=== PATIENT | female | born 1965 | race Caucasian/White ===

== ENCOUNTER 2021-01-12 14:01 | Emergency (ER) | payer OTHER, SELFPAY ==
--- NOTE | ~2021-01-12 | CT_ITS ---
EXAMINATION: CT ABDOMEN AND PELVIS WITHOUT CONTRAST CLINICAL INFORMATION: LLQ pain with hx of diverticulitis . COMPARISON: 05/18/2017. TECHNIQUE: Multidetector volumetric imaging was performed from the superior aspect of the liver through the pubic symphysis without contrast per renal stone protocol. Sagittal and coronal reformatted images were obtained on the technologist workstation. This CT examination was performed using dose optimization techniques as appropriate, variously including the following: *Automated exposure control *Adjustment of mA and/or kV according to patient size (this includes techniques or standardized protocols for targeted exams where dose is matched to indication/reason for exam; i.e. extremities or head) *Use of iterative reconstruction technique DLP: 1016 mGy-cm. FINDINGS: LUNG BASES: The visualized lung bases are unremarkable. LIVER, GALLBLADDER, BILIARY TREE: Mild diffuse fatty infiltration of the liver but no focal hepatic lesion nor biliary ductal dilatation. The gallbladder is unremarkable with no evidence of radiopaque gallstones, gallbladder wall thickening, or obvious pericholecystic inflammatory changes. PANCREAS: Unremarkable. SPLEEN: Unremarkable. ADRENAL GLANDS: 3.8 cm fat-containing right adrenal myelolipoma. Left adrenal unremarkable. KIDNEYS AND URETERS: The kidneys are normal in size, shape, and attenuation. No hydronephrosis, hydroureter, or calculi seen. No perinephric stranding. BLADDER: Unremarkable. GASTROINTESTINAL TRACT: Scattered colonic diverticulosis more so in the sigmoid colon. There is subtle pericolonic inflammatory change along the proximal sigmoid colon suggesting mild diverticulitis. No obstructive changes or perforation identified. Visualized small bowel unremarkable. ABDOMINAL WALL: No significant hernia is appreciated. LYMPHOVASCULAR STRUCTURES: No lymphadenopathy. The aorta is unremarkable.. PELVIC VISCERA: Unremarkable. OSSEUS STRUCTURES: Multilevel degenerative changes in the spine CT/CT abdomen pelvis wo con IMPRESSION: Scattered diverticulosis more so in the sigmoid colon. There is mild focal pericolonic inflammatory change along the anterior proximal sigmoid colon suggesting focal diverticulitis. No obstructive changes seen. Small right adrenal angiomyolipoma and diffuse fatty infiltration of the liver again noted.
[2021-01-12 16:51] VITALS: BP 122/72; PULSE 100; RESP 20; TEMP 36.8; O2SAT 95; BMI 44.8
[2021-01-12 17:05] LABS: MANUAL DIFF FLAG NO
[2021-01-12 17:12] LABS: Basophils Percent Auto 0.3 % (0-2); Eosinophils Absolute Auto 0.6 X10*3/uL (0.0-0.4); Eosinophils Percent Auto 5.9 % (0-4); Hemoglobin 14.8 g/dl (12.0-16.0); Imm Gran Abs Auto 0.04 X10*3/uL (0.00-0.03); Imm Gran Pct Auto 0.4 % (0.0-0.4); Lymphocytes Percent Auto 10.4 % (20-40); Mean Corpuscular HGB Conc 32.9 g/dl (31.0-35.0); Mean Corpuscular Hemoglobin 30.5 pg (27.0-33.0); Mean Corpuscular Volume 92.6 fL (80-98); Monocytes Percent Auto 10.1 % (2-11); Neutrophils Absolute Auto 7.1 X10*3/uL (2.0-8.3); Neutrophils Percent Auto 72.9 % (45-73); Platelet Count 338 X10*3/uL (160-400); Red Blood Count 4.86 X10*6/uL (4.20-5.50); Red Cell Distribution Width 13.5 % (11.0-16.0); White Blood Count 9.7 X10*3/uL (4.8-10.8)
[2021-01-12 17:43] LABS: Anion Gap 14 (12-20); Blood Urea Nitrogen 9 mg/dL (9-16); Calcium 8.9 mg/dL (8.4-10.2); Carbon Dioxide 29 mmol/L (22-29); Chloride 101 mmol/L (96-108); Creatinine Clr Calc Pharmacy 70.2; Estimated Glomerular Filt Rate > 60; Glucose Random 95 mg/dL (60-115); Potassium 3.8 mmol/L (3.3-5.1); Sodium 140 mmol/L (135-145)
--- NOTE | 2021-01-12 20:54 | ED_ITS ---
HPI - Abdominal Pain General Chief Complaint: Abdominal Pain Stated Complaint: ABD PAIN Time Seen by Provider: 01/12/21 14:22 Source: patient Mode of arrival: ambulatory Limitations: no limitations History of Present Illness HPI narrative: Patient's history of diverticulitis been having pain in the left lower quadrant for last 6 days seen her PCP who prescribed her Cipro and Flagyl which she been taking for last 5 days patient noticed rash in lower extremities and upper extremity for last 24 hours also noticed the pain is still going on and not getting better with nausea no fever no chills no vomiting no abdominal distension no increase in pain on ambulation no blood in the stool MD elicited complaint: abdominal pain Pertinent past history: diverticulitis Onset (ago): day(s) (6) Pain Consistency: intermittent Location: RLQ and LLQ Severity: moderate Quality: cramping Exacerbating factors: eating and bowel movement Relieving factors: nothing Associated symptoms: nausea Related Data Previous Rx's Medication Instructions Recorded cefuroxime axetil 500 mg PO BID 10 Days #20 tab 01/12/21 dicyclomine 20 mg PO QID PRN #20 tab 01/12/21 ondansetron 4 mg PO Q6-8H PRN #10 tab 01/12/21 Allergies Allergy/AdvReac Type Severity Reaction Status Date / Time bee pollen [BEE STINGS] Allergy Severe ANAPHYLAXIS Unverified 08/14/20 15:20 Sulfa (Sulfonamide Allergy Severe ANAPHYLAXIS Unverified 08/14/20 15:20 Antibiotics) [SULFA (SULFONAMIDE ANTIBIOTICS)] Penicillins [PENICILLINS] Allergy Intermediate RASH Unverified 08/14/20 15:20 dill Allergy Unknown Uncoded 12/21/18 00:00 Milk Allergy Unknown Uncoded 12/21/18 00:00 PENICILLIN Allergy Unknown Uncoded 12/21/18 00:00 SULFA Allergy Unknown Uncoded 12/21/18 00:00 Review of Systems Review of Systems Constitutional : No Weight loss, No Fever, No Chills ENT/Mouth : No sore throat, No Rhinorrhea Eyes: No Eye Pain, No Swelling Cardiovascular : No Chest Pain, no palpitations Respiratory : No Cough, No Sputum, no shortness of breath Gastrointestinal : + Nausea, No Vomiting, No Diarrhea, + abdominal Pain, no black stools Genitourinary : No Dysuria, No Urinary Frequency Musculoskeletal : No joint pain, No Myalgias, No Joint Swelling Skin : No Skin Lesions, No rash Neuro : No Weakness, No Numbness, No Dizziness, No Headache Psych : No Anxiety/Panic, No Depression Heme/Lymph: No Bruising, No Lymphadenopathy Endocrine : No Polyuria, No Polydipsia All other systems reviewed and are negative Physical Exam Vital Signs: Vital Signs: Last Vital Signs Temp 98.2 F 01/12/21 16:51 Pulse 82 01/12/21 22:22 Resp 18 01/12/21 22:22 BP 140/71 H 01/12/21 22:22 Pulse Ox 98 01/12/21 22:22 Body Mass Index 44.8 Appearance: Alert. Oriented X3. No acute distress. Eyes: Pupils equal, round and reactive to light. ENT: Pharynx normal. Neck: Normal inspection. Neck supple. CVS: Normal heart rate and rhythm. Pulses normal. Respiratory: No respiratory distress. Breath sounds normal. Abdomen: Soft deep tenderness left lower quadrant no rebound tenderness or guarding. Bowel sounds are present, no mass palpable, no CVA tenderness Skin: Skin warm and dry. Normal skin color. Normal skin turgor. Extremities: No lower extremity edema. Neuro: Oriented X 3. No motor deficit. No sensory deficit. MDM - Abdominal Pain MDM Narrative Medical decision making narrative: Patient with left lower quadrant pain with history of diverticulitis on antibiotics came were increased pain and a rash secondary to Cipro likely. CT scan was done which showed focal diverticulitis no fluid collection WBC counts are normal at this time patient has localized diverticulitis IVC 410 was given in the ER will discharge patient home on Ceftin and advised to continue Flagyl Differential Diagnosis Differential diagnosis: Likely abdominal pain and diverticulitis Medical Records Attestation: I reviewed the patient's medical records. Lab Data Attestation: I reviewed the patient's lab results. Result diagrams: 01/12/21 17:00 01/12/21 17:00 Labs: Lab Results 01/12/21 01/12/21 01/12/21 Range/Units 17:00 17:00 17:00 WBC 9.7 (4.8-10.8) X10*3/uL RBC 4.86 (4.20-5.50) X10*6/uL Hgb 14.8 (12.0-16.0) g/dl Hct 45.0 (37-47) % MCV 92.6 (80-98) fL MCH 30.5 (27.0-33.0) pg MCHC 32.9 (31.0-35.0) g/dl RDW 13.5 (11.0-16.0) % Plt Count 338 (160-400) X10*3/uL MPV 9.0 L (9.4-12.3) fL Immature Gran % (Auto) 0.4 (0.0-0.4) % Neut % (Auto) 72.9 (45-73) % Lymph % (Auto) 10.4 L (20-40) % [place] % (Auto) 10.1 (2-11) % Eos % (Auto) 5.9 H (0-4) % Baso % (Auto) 0.3 (0-2) % Lymph # (Auto) 1.0 L (1.2-4.9) X10*3/uL [place] # (Auto) 1.0 (0.1-1.2) X10*3/uL Eos # (Auto) 0.6 H (0.0-0.4) X10*3/uL Baso # (Auto) 0.0 (0.0-0.2) X10*3/uL Abs Immat Gran (auto) 0.04 H (0.00-0.03) X10*3/uL Absolute Neuts (auto) 7.1 (2.0-8.3) X10*3/uL Absolute Nucleated RBC 0.000 (0.0-0.012) X10*3/uL Nucleated RBC % (auto) 0.0 (0.0-0.2) /100WBC Hold Blue Top SEE NOTE Sodium 140 (135-145) mmol/L Potassium 3.8 (3.3-5.1) mmol/L Chloride 101 (96-108) mmol/L Carbon Dioxide 29 (22-29) mmol/L Anion Gap 14 (12-20) BUN 9 (9-16) mg/dL Creatinine 0.82 (0.5-1.4) mg/dL Estim Creat Clear Calc 70.2 Estimated GFR > 60 Random Glucose 95 (60-115) mg/dL Calcium 8.9 (8.4-10.2) mg/dL Discharge Plan Discharge Clinical Impression: Diverticulitis Patient Disposition: Home, Self-Care Instructions: Diverticulitis (ED) Additional Instructions: Avoid constipation have clear liquids, advance diet as tolerated And take antibiotics and pain medicine as prescribed Report to the ER/PCP if increased pain/fever/vomiting Prescriptions: New cefuroxime axetil 500 mg tablet 500 mg PO BID 10 Days Qty: 20 RF: 0 ondansetron 4 mg tablet,disintegrating 4 mg PO Q6-8H PRN (Reason: nausea and vomiting) Qty: 10 RF: 0 dicyclomine 20 mg tablet 20 mg PO QID PRN (Reason: abdominal pain) Qty: 20 RF: 0 Stand Alone Forms: Work/School Release Interventions: ED Discharge Assessment Last Done: 01/12/21 22:43 [facility] Past Medical History Medical History (Updated 01/12/21 @ 22:32 by Shaw Dudley MD) Asthma Diverticulitis Social History Social History Alcohol intake: never Smoking Status: Never smoker Use of substances other than those prescribed or required for medical reasons: No Advance Directives: No
--- NOTE | 2021-01-12 21:16 | PC.NURSE ---
pt taken to ct
[2021-01-12 21:25] VITALS: BP 137/58; PULSE 88; RESP 20; O2SAT 97
[2021-01-12 22:22] VITALS: BP 140/71; PULSE 82; RESP 18; O2SAT 98
[2021-01-12] MEDS: ondansetron HCL 4 MG/2 ML VIAL IVPUSH (22:27)
[2021-01-12] MEDS: Acetaminophen 325 MG TABLET 650 MG PO (22:59)
[2021-01-12] MEDS: diphenhydrAMINE HCL 25 MG TABLET 50 MG PO (22:59)
--- NOTE | 2021-01-12 23:01 | PC.NURSE ---
upon giving pt her discharge papers pt started to have the chills temp taken 100.[address] sousa made aware and pt treated with tylenol and benadry.
--- NOTE | 2021-01-12 23:34 | PC.NURSE ---
pt seen by provider for chills , pt recieved benadryl and tylenol with good effect.
== END 2021-01-12 23:34 | disposition home or self-care (01) ==
PROVIDERS: Emergency Provider Internal Medicine; PCP Internal Medicine
DX: K57.92 Diverticulitis of intestine, part unspecified, without perforation or abscess without bleeding (principal); J45.909 Unspecified asthma, uncomplicated; L27.0 Generalized skin eruption due to drugs and medicaments taken internally
CPT/HCPCS: 36415; 74176; 80048; 85025; 96365; 96375; 99284; J2405; Q0163

== ENCOUNTER → 2021-01-28 13:59 | Outpatient (BNVA) | payer OTHER, SELFPAY | PROVIDERS: PCP Internal Medicine; Visit Provider Nurse Practitioner ==

== ENCOUNTER → 2021-02-25 13:14 | Outpatient (BNVA) | payer OTHER, SELFPAY | PROVIDERS: PCP Internal Medicine; Visit Provider Nurse Practitioner ==

== ENCOUNTER → 2021-08-28 15:09 | Outpatient (BNVA) | payer OTHER, SELFPAY | PROVIDERS: PCP Internal Medicine; Visit Provider Nurse Practitioner ==

== ENCOUNTER 2022-03-20 09:52 | Outpatient (REF) | payer OTHER, SELFPAY ==
[2022-03-20 09:57] LABS: MANUAL DIFF FLAG NO
[2022-03-20 10:36] LABS: Basophils Absolute Auto 0.1 X10*3/uL (0.0-0.2); Basophils Percent Auto 0.8 % (0-2); Eosinophils Absolute Auto 0.2 X10*3/uL (0.0-0.4); Eosinophils Percent Auto 1.7 % (0-4); Hematocrit 40.7 % (37.0-47.0); Hemoglobin 13.7 g/dl (12.0-16.0); Imm Gran Abs Auto 0.03 X10*3/uL (0.00-0.03); Imm Gran Pct Auto 0.3 % (0.0-0.4); Lymphocytes Absolute Auto 2.7 X10*3/uL (1.2-4.9); Lymphocytes Percent Auto 31.4 % (20-40); Mean Corpuscular HGB Conc 33.7 g/dl (31.0-35.0); Mean Corpuscular Hemoglobin 31.1 pg (27.0-33.0); Mean Corpuscular Volume 92.5 fL (80.0-98.0); Mean Platelet Volume 9.7 fL (9.4-12.3); Monocytes Absolute Auto 0.8 X10*3/uL (0.1-1.2); Monocytes Percent Auto 9.7 % (2-11); Neutrophils Absolute Auto 4.8 x10*3/uL (2.0-8.3); Neutrophils Percent Auto 56.1 % (45-73); Platelet Count 334 X10*3/uL (160-400); Red Cell Distribution Width 12.7 % (11.0-16.0); White Blood Count 8.6 X10*3/uL (4.8-10.8)
[2022-03-20 11:00] LABS: Alanine Aminotransferase 28 U/L (0-31); Albumin Level 4.2 g/dL (3.5-5.0); Alkaline Phosphatase 135 U/L (39-117); Anion Gap 12 (12-20); Aspartate Amino Transferase 22 U/L (5-31); Bilirubin Total 0.4 mg/dL (0.0-1.0); Blood Urea Nitrogen 16 mg/dL (9-16); Calcium 9.5 mg/dL (8.4-10.2); Carbon Dioxide 25 mmol/L (22-29); Chloride 106 mmol/L (96-108); Cholesterol 240 mg/dL; Estimated Glomerular Filt Rate > 60; Glucose Fasting 89 mg/dL (60-99); HDL Cholesterol 55 mg/dL; LDL Cholesterol Calculated 159 mg/dl; Potassium 3.8 mmol/L (3.3-5.1); Sodium 139 mmol/L (135-145); Total Protein 6.8 g/dL (6.5-8.0); Triglycerides 131 mg/dL
== END 2022-03-20 09:53 | disposition home or self-care (01) ==
LOC: HO.LAB 09:52
PROVIDERS: PCP Nurse Practitioner Family; Visit Provider Nurse Practitioner Family
DX: I10 Essential (primary) hypertension (principal); E78.00 Pure hypercholesterolemia, unspecified
CPT/HCPCS: 36415; 80053; 80061; 85025

== ENCOUNTER → 2022-06-14 14:14 | Outpatient (REF) | payer OTHER, SELFPAY | LOC: HO.SL 14:14 | PROVIDERS: PCP Nurse Practitioner Family; Visit Provider Nurse Practitioner Family | DX: G47.33 Obstructive sleep apnea (adult) (pediatric) (principal) | CPT/HCPCS: 95806 ==

== ENCOUNTER → 2022-10-15 14:04 | Outpatient (BNVA) | payer OTHER, SELFPAY | PROVIDERS: PCP Physician Assistant; Visit Provider Nurse Practitioner | DX: K59.04 Chronic idiopathic constipation (principal); K57.92 Diverticulitis of intestine, part unspecified, without perforation or abscess without bleeding | CPT/HCPCS: 99212 ==

== ENCOUNTER 2022-11-17 12:50 | Outpatient (REF) | payer OTHER, SELFPAY | END 2022-11-17 12:51 | disposition home or self-care (01) | LOC: HO.MAMMO 12:50 | PROVIDERS: PCP Physician Assistant; Visit Provider Physician Assistant | DX: Z12.31 Encounter for screening mammogram for malignant neoplasm of breast (principal) | CPT/HCPCS: 77063; 77067 ==

== ENCOUNTER → 2023-03-04 11:21 | Outpatient (BNVA) | payer OTHER, SELFPAY | PROVIDERS: PCP Physician Assistant; Visit Provider Dietitian, Registered | DX: E66.01 Morbid (severe) obesity due to excess calories (principal); Z68.44 Body mass index [BMI] 60.0-69.9, adult | CPT/HCPCS: 97802 ==

== ENCOUNTER → 2023-04-19 10:22 | Outpatient (BNVA) | payer OTHER, SELFPAY | PROVIDERS: PCP Physician Assistant; Visit Provider Dietitian, Registered | DX: E66.01 Morbid (severe) obesity due to excess calories (principal); Z68.44 Body mass index [BMI] 60.0-69.9, adult; Z71.3 Dietary counseling and surveillance | CPT/HCPCS: 97803 ==

== ENCOUNTER → 2023-05-03 10:35 | Outpatient (BNVA) | payer OTHER, SELFPAY | PROVIDERS: PCP Physician Assistant; Visit Provider Dietitian, Registered | DX: E66.01 Morbid (severe) obesity due to excess calories (principal) | CPT/HCPCS: 97803 ==

== ENCOUNTER 2023-10-06 15:42 | Outpatient (AMB) | payer OTHER, SELFPAY ==
[2023-10-06 15:43] VITALS: BP 142/82; PULSE 75; RESP 17; O2SAT 98; BMI 64.2
--- NOTE | 2023-10-06 15:43 | MHC.PC.OV ---
Vital Signs 10/06/23 15:43 Height 4 ft 5 in Weight 256 lb 8 oz BMI 64.2 BP 142/82 H Blood Pressure Location Lt brachial Position Sitting Respiration 17 Pulse 75 Pulse Source Pulse Oximeter Pulse Oximetry (%) 98 Oxygen Delivery Method Room Air Intake Visit Reasons: 6M Follow up Intake Note: Pt is here for 6 months F/U. 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 Accompanied by: Self / Same As Patient Allergies bee pollen [BEE STINGS] Allergy (Severe, Verified 10/06/23 16:15) ANAPHYLAXIS Sulfa (Sulfonamide Antibiotics) [SULFA (SULFONAMIDE ANTIBIOTICS)] Allergy (Severe, Verified 10/06/23 16:15) ANAPHYLAXIS Penicillins [PENICILLINS] Allergy (Intermediate, Verified 10/06/23 16:15) RASH dill Allergy (Intermediate, Uncoded 10/06/23 16:05) asthma Milk Allergy (Intermediate, Uncoded 10/06/23 16:05) stomach pains Medication List - Last Reconciled 10/06/23 by Vlad Torres PA-C albuterol sulfate 90 mcg/actuation 2 inhalations inhalation Q6-8H PRN CPAP (CPAP Machine/Device) CPAP machine and supplies fluoxetine TAKE 1 CAPSULE BY MOUTH DAILY hydrochlorothiazide 25 mg PO DAILY ibuprofen 800 mg PO TID PRN psyllium husk (Metamucil) 0.4 grams PO BID Tobacco use date assessed: 10/06/23 Dental Screening Dental Screen Date: 10/06/23 Did you have a dental visit in the last 12 months?: Yes Did you have a dental problem in the last 6 months where you did not have access to dental care?: No Was dental information given to patient?: Patient has dentist HPI 6M Follow up HPI Details Patient is a 57-year-old female here today for follow-up visit. Patient has a past medical history significant for major depressive disorder, asthma, obesity, ISABEL, diverticulitis. Patient is followed by gastroenterology and continues on p.r.n. use of laxatives and fiber supplementation for chronic constipation. Has a h/o diverticulitis. Has made some dietary changes which has helped her GI symptoms. .. Asthma: Has been well controlled, She report her allergies are primarily allergy related .. MDD: Does report her mental health has been stable with current mental health medications. She does not speak with a mental health therapist or psychiatrist at this time. .. Obesity: She does understand her BMI is well over 40 and she is not interested in bariatric surgery at this time. She is interested in speaking with a weight land management forester. She does report having some worsening bilateral knee pain and left lateral hip pain and occasional numbness over her lateral thigh. She attributes these symptoms to her weight. She is interested in doing physical therapy for her lumbar spine. 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 Sandip Morrissey, Bindu Da Silva, Stuart Jones and colleagues, with an educational driss from [employer]. Review of Systems Const Denies headache(s) Eyes Denies loss of vision ENT Denies vertigo, Denies dizziness, Denies headache(s) and Denies sore throat Card Denies chest pain, Denies leg edema and Denies lightheadedness Resp Denies cough, Denies hemoptysis and Denies wheezing GI Denies abdominal pain, Denies melena, Denies constipation, Denies diarrhea and Denies vomiting Denies urinary frequency, Denies dysuria and Denies urinary urgency Musc Denies arthralgias, Denies joint swelling, Denies numbness and Denies tingling Neuro Denies Abnormal speech present, Denies behavioral changes, Denies vertigo, Denies dizziness, Denies headache(s), Denies loss of vision, Denies memory loss, Denies numbness and Denies tingling Psych Denies anxiety, Denies behavioral changes, Denies depression, Denies memory loss and Denies panic attacks Micah/Lymph Denies easy bleeding and Denies easy bruising Aller/Immun Denies wheezing Physical exam (Primary Care) Vital Signs: Last Vital Signs Pulse 75 10/06/23 15:43 Resp 17 10/06/23 15:43 BP 142/82 H 10/06/23 15:43 Pulse Ox 98 10/06/23 15:43 Oxygen Delivery Method Room Air 10/06/23 15:43 BMI result Body Mass Index 64.2 BMI Assessment/Plan discussion: High Tobacco/Smoking Status: Tobacco use Status Tobacco use date assessed 10/06/23 10/06/23 16:00 Patient Tobacco Use Status Former Tobacco user 10/06/23 15:46 e-Cigarette/Vaping Use Never Used 10/06/23 15:46 Thrive Assessment: Date of Thrive Assessment Date Thrive assessed 03/29/22 10/06/23 15:46 Const Other: Obese General: healthy appearing, no acute distress, alert and awake Nutritional Appearance: well nourished Orientation/consciousness: oriented to person, oriented to place and oriented to time HENMT Ears: TM's normal bilaterally and normal EAC's General nose exam: Normal nasal mucous membranes and turbinates present Eyes Conjunctivae: conjunctivae normal Sclerae: sclerae normal Pupils: Equal, round and reactive pupils present Neck Neck: Yes no lymphadenopathy and Yes no JVD Thyroid: Thyroid normal Carotids: no bruits Resp Effort & Inspection: normal respiratory effort and not tachypneic Auscultation: no crackles, no rales, no rhonchi and no wheezes Cardio Rate: regular rate Rhythm: regular rhythm Heart sounds: no murmurs and normal S1 and S2 GI Palpation (GI): Soft to palpation, nontender, no hepatomegaly and no splenomegaly Auscultation: normal bowel sounds Skin General skin exam: no rashes or lesions noted and dry skin Neuro General: oriented to person, oriented to place and oriented to time Cranial nerves: Yes Equal, round and reactive pupils present Speech: No Abnormal speech present Gait exam (Neuro): Normal gait present Motor exam (neuro): no tremor noted Extrem Right upper extremity: full ROM Left upper extremity: full ROM Right lower extremity: full ROM; no edema Left lower extremity: full ROM; no edema Psych Mental Status: mental status grossly normal Speech and movement: Normal speech and movement present Affect: normal affect Attitude: cooperative Thought process: Normal thought process present Assessment and Plan Assessment & Plan (1) Morbid obesity: Code(s): E66.01 - Morbid (severe) obesity due to excess calories Plan: Patient does understand her BMI is over 60 will continue working on being more physically active and adapting to better eating habits to reduce her weight. Again she is interested in speaking with a weight land management forester but weight reduction (2) Lumbar radiculopathy: Code(s): M54.16 - Radiculopathy, lumbar region Plan: Patient seems to have signs and symptoms of lumbar radiculopathy. She is willing to do physical therapy to help reduce her lumbar radicular symptoms (3) MDD (major depressive disorder), recurrent episode, moderate: Code(s): F33.1 - Major depressive disorder, recurrent, moderate Plan: . (4) Asthma: Code(s): J45.909 - Unspecified asthma, uncomplicated Qualifiers: Asthma complication type: uncomplicated Asthma persistence: intermittent Asthma severity: mild Qualified Code(s): J45.20 - Mild intermittent asthma, uncomplicated Plan: Patient reports her asthma is fairly well controlled with only limited p.r.n. use of her albuterol inhaler. Denies any nighttime awakenings with asthma symptoms or recent asthma exacerbations. (5) HLD (hyperlipidemia): Code(s): E78.5 - Hyperlipidemia, unspecified Qualifiers: Hyperlipidemia type: mixed hyperlipidemia Qualified Code(s): E78.2 - Mixed hyperlipidemia Plan: Most recent lipid panel showing elevated total cholesterol. Continue to work on lifestyle modifications to reduce her cholesterol. (6) HTN (hypertension): Code(s): I10 - Essential (primary) hypertension Qualifiers: Hypertension type: primary hypertension Qualified Code(s): I10 - Essential (primary) hypertension Plan: Patient blood pressure slightly elevated today in office. She continues on hydrochlorothiazide without any side effect. She does not regularly monitor blood pressure and advised to do so at home. Fortunately she is asymptomatic without any chest discomfort, headaches or dizziness. Will consider additional blood pressure medication though will like to work on weight reduction at this time. Goal blood pressure to be below 140/90 Orders: Orders PT Evaluation and Treatment 10/06/23 M51.9 - Unspecified thoracic, thoracolumbar and lumbosacral intervertebral disc disorder, M54.16 - Radiculopathy, lumbar region XR lumbar spine 2-3V 10/06/23 G89.29 - Other chronic pain, M54.50 - Low back pain, unspecified Comprehensive [place]. Panel Fast 10/06/23 E78.2 - Mixed hyperlipidemia Lipid Panel 10/06/23 E78.2 - Mixed hyperlipidemia Microalbumin, Random (w Creat) 10/06/23 I10 - Essential (primary) hypertension Referrals Medical Weight Management Referral E66.01 - Morbid (severe) obesity due to excess calories Medications: Changed From fluoxetine TAKE 1 CAPSULE BY MOUTH DAILY 30 caps 0RF F33.1 - Major depressive disorder, recurrent, moderate To fluoxetine 20 mg PO DAILY 90 days 90 caps 1RF F33.1 - Major depressive disorder, recurrent, moderate From hydrochlorothiazide 25 mg PO DAILY 30 tabs 0RF I10 - Essential (primary) hypertension To hydrochlorothiazide 25 mg PO DAILY 90 days 90 tabs 1RF I10 - Essential (primary) hypertension Coding Level of Care Code Est Pt Level 4 (54306) Diagnoses Morbid obesity E66.01 Lumbar radiculopathy M54.16 MDD (major depressive disorder), recurrent episode, moderate F33.1 Mild intermittent asthma without complication J45.20 Asthma complication type: uncomplicated Asthma persistence: intermittent Asthma severity: mild Mixed hyperlipidemia E78.2 Hyperlipidemia type: mixed hyperlipidemia Primary hypertension I10 Hypertension type: primary hypertension
== END 2023-10-06 16:41 | disposition home or self-care (01) ==
PROVIDERS: PCP Physician Assistant; Visit Provider Physician Assistant
DX: J45.20 Mild intermittent asthma, uncomplicated (principal); E66.01 Morbid (severe) obesity due to excess calories; F33.1 Major depressive disorder, recurrent, moderate; Z68.44 Body mass index [BMI] 60.0-69.9, adult; M54.16 Radiculopathy, lumbar region; E78.2 Mixed hyperlipidemia; I10 Essential (primary) hypertension
CPT/HCPCS: 99214

== ENCOUNTER 2023-12-16 14:55 | Outpatient (AMB) | payer OTHER, SELFPAY ==
--- NOTE | 2023-12-16 14:59 | MHC.OFFVIS ---
Intake Vital Signs 12/16/23 15:39 Height 4 ft 5 in Weight 264 lb 8.875 oz BMI 66.2 BP 116/53 L Blood Pressure Location Rt brachial Position Sitting Pulse 95 Intake Visit Reasons: 1 year fu Intake Note: Patient presents to in office visit today in one year follow up of constipation. CC: She states she continues on her Metamucil once or twice a day and is doing great. Denies having any new GI symptoms or concerns today. [employer] Required: No Accompanied by: Self / Same As Patient Allergies bee pollen [BEE STINGS] Allergy (Severe, Verified 10/06/23 16:15) ANAPHYLAXIS Sulfa (Sulfonamide Antibiotics) [SULFA (SULFONAMIDE ANTIBIOTICS)] Allergy (Severe, Verified 10/06/23 16:15) ANAPHYLAXIS Penicillins [PENICILLINS] Allergy (Intermediate, Verified 10/06/23 16:15) RASH dill Allergy (Intermediate, Uncoded 10/06/23 16:05) asthma Milk Allergy (Intermediate, Uncoded 10/06/23 16:05) stomach pains HPI 1 year fu HPI Details Assessment & Plan (1) Chronic idiopathic constipation: Code(s): K59.04 - Chronic idiopathic constipation Plan: She is doing well! She is taking the metamucil and being careful about the diet and no more problems. This is the 1st that she has been able to meet me in person since we started during COVID and the telephone visit era, but she is very grateful for high been able to bring her through her illness to recovery. I tell her that since she has done well she can either opt to follow-up with me or just follow with her primary care but she preferred to keep her options open and follow-up with us yearly. She has not needed to use the dicyclomine since she has fully recovered from her diverticulitis. ROV 1 year (2) Diverticulitis: Code(s): K57.92 - Diverticulitis of intestine, part unspecified, without perforation or abscess without bleeding TODAY'S VISIT She has managed her CIC with metamucil w/o problem in the past. Since she is very stable I offer her whether she wishes to continue to follow with me or simply follow with her primary care provider. She opts to follow-up at 1 year intervals because she would rather have access to a GI in case she has future problems. She asked me to prescribe the Metamucil and although it has frequently not covered by insurance it may be covered under her flex spending plan and if she needs me to write prescription in the future I will do this. Return office visit in 1 year [facility] Medical History Screening for hypothyroidism Breast cancer screening Obese COVID-19 Physical exam BMI 50.0-59.9, adult Encounter to establish care Asthma Diverticulitis Surgical History Hx of colonoscopy Family History Mother Breast cancer Substance use disorder Brother High cholesterol Father Diverticulitis Other Mental health disorder Social History Household Members: Significant Other Housing: Apartment Alcohol intake: never Patient Tobacco Use Status: Former Tobacco user e-Cigarette/Vaping Use: Never Used Second Hand Smoke Exposure: No service: No Current occupational status: employed 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 Current occupational exposures/hazards: No Cognitive needs: No Hearing needs: No Vision needs: Yes (glasses) Review of Systems Const Denies fatigue, Denies fever(s), Denies night sweats, Denies poor appetite and Denies weight loss Eyes Details: glasses Reports requires corrective lenses ENT Reports Normal hearing present, Denies dental pain, Denies dysphagia, Denies hearing loss, Denies mouth pain, Denies odynophagia, Denies throat swelling, Denies tongue swelling and Reports other (Dentition adequate) Card Reports no additional complaints Resp Reports no additional complaints GI Denies abdominal pain, Denies melena, Denies bloating, Denies hematochezia, Reports constipation, Denies GI cramping, Denies dysphagia, Denies excessive flatus, Denies early satiety, Denies heartburn, Denies diarrhea, Denies nausea, Denies odynophagia, Denies vomiting and Denies hematemesis Skin/Breast Denies pruritus, Denies lesions, Denies rash and Denies jaundice Neuro Reports Normal hearing present and Denies Abnormal speech present Endo Denies fatigue Aller/Immun Denies throat swelling and Denies tongue swelling Physical Exam Vital Signs: Last Vital Signs Pulse 95 12/16/23 15:39 BP 116/53 L 12/16/23 15:39 BMI result Body Mass Index 66.2 Const General: cooperative, no acute distress, well developed and well groomed Nutritional Appearance: well nourished and obese morbidly obese Orientation/consciousness: oriented to person, oriented to place and oriented to time Limitations: No language barrier HEENT Head: Yes normocephalic and Yes atraumatic Eyes General: appearance normal, both eyes and all related structures Pupils: Equal, round and reactive pupils present Neck Neck: Yes normal visual inspection and Yes no lymphadenopathy Thyroid: Thyroid normal Resp Effort & Inspection: normal respiratory effort and able to speak in complete sentences Auscultation: clear to auscultation bilaterally Cardio Rate: regular rate Rhythm: regular rhythm Heart sounds: Normal, physiologic split S2 sound present Peripheral pulses: radial pulses present and posterior tibial pulses present GI Inspection: No distended, Yes Abdominal panniculus present and Yes obesity Palpation (GI): Soft to palpation, nontender, no guarding, not rigid and No hepatosplenomegaly present Percussion: Yes normal to percussion Auscultation: normal bowel sounds Rectal Exam - Female: deferred Skin General skin exam: no rashes or lesions noted, turgor normal, skin not dry, no jaundice, No spider nevi and no striae Rashes: no rashes Nails: normal Neuro General: oriented to person, oriented to place and oriented to time Cranial nerves: Yes Equal, round and reactive pupils present and Yes Normal hearing present Speech: No Abnormal speech present Extrem General: Yes normal to inspection, No clubbing, No cyanosis and No edema Psych Appearance: grossly normal and well kempt Mental Status: mental status grossly normal Speech and movement: Normal speech and movement present Affect: normal affect Attitude: cooperative Thought process: Normal thought process present and not confabulating Thought content: Normal thought content present Insight: Good insight present (Psych) Judgement: Good judgement present (Psych) Assessment & Plan Assessment & Plan (1) Chronic idiopathic constipation: Code(s): K59.04 - Chronic idiopathic constipation (2) Diverticulitis: Code(s): K57.92 - Diverticulitis of intestine, part unspecified, without perforation or abscess without bleeding Plan She has managed her CIC with metamucil w/o problem in the past. Since she is very stable I offer her whether she wishes to continue to follow with me or simply follow with her primary care provider. She opts to follow-up at 1 year intervals because she would rather have access to a GI in case she has future problems. She asked me to prescribe the Metamucil and although it has frequently not covered by insurance it may be covered under her flex spending plan and if she needs me to write prescription in the future I will do this. Return office visit in 1 year Medications: New psyllium husk (Metamucil) 0.4 grams PO BID 60 caps 12RF Coding Level of Care Code Est Pt Level 3 (39853) Diagnoses Chronic idiopathic constipation K59.04 Diverticulitis K57.92
[2023-12-16 15:39] VITALS: BP 116/53; PULSE 95; BMI 66.2
== END 2023-12-16 16:00 | disposition home or self-care (01) ==
PROVIDERS: PCP Physician Assistant; Visit Provider Nurse Practitioner
DX: K59.04 Chronic idiopathic constipation (principal); K57.92 Diverticulitis of intestine, part unspecified, without perforation or abscess without bleeding
CPT/HCPCS: 99213

== ENCOUNTER → 2023-12-16 14:55 | Outpatient (BNVA) | payer OTHER, SELFPAY | PROVIDERS: PCP Physician Assistant; Visit Provider Nurse Practitioner | DX: K59.04 Chronic idiopathic constipation (principal); K57.92 Diverticulitis of intestine, part unspecified, without perforation or abscess without bleeding | CPT/HCPCS: 99212 ==

== ENCOUNTER 2023-12-26 13:39 | Outpatient (REF) | payer OTHER, SELFPAY ==
--- NOTE | ~2023-12-26 | MM_ITS ---
EXAMINATION: MM SCREENING DIGITAL BREAST TOMOSYNTHESIS, BILATERAL CLINICAL INFORMATION: Screening. Asymptomatic. COMPARISON: Mammography: This study is compared with prior exams dating back to 2021. TECHNIQUE: Digital breast tomosynthesis is performed in both the craniocaudal and mediolateral oblique views along with computer-aided detection (CAD). Synthesized 2D images are generated from the tomosynthesis. FINDINGS: The breasts are almost entirely fatty (ACR BI-RADS breast composition Category a). There are no significant masses, abnormal calcifications, or other abnormalities. MM/MM tomosynthesis screening BI IMPRESSION: No mammographic evidence of malignancy. ASSESSMENT: BI-RADS BI-RADS 1 - Negative RECOMMENDATION: Routine annual mammography screening. 1 year F/U This examination should not preclude the clinical evaluation of a suspicious palpable abnormality. This patient's information was entered into a reminder system with a target due date for their next mammogram.
== END 2023-12-26 13:40 | disposition home or self-care (01) ==
LOC: HO.MAMMO 13:39
PROVIDERS: PCP Physician Assistant; Visit Provider Physician Assistant
DX: Z12.31 Encounter for screening mammogram for malignant neoplasm of breast (principal)
CPT/HCPCS: 77063; 77067

== ENCOUNTER → 2023-12-26 13:45 | Outpatient (BNV) | payer OTHER, SELFPAY | PROVIDERS: PCP Physician Assistant; Visit Provider Radiology Diagnostic Radiology | DX: Z12.31 Encounter for screening mammogram for malignant neoplasm of breast (principal) | CPT/HCPCS: 77063; 77067 ==

== ENCOUNTER 2023-12-28 16:30 | Outpatient (REF) | payer OTHER, SELFPAY ==
--- NOTE | ~2023-12-28 | XR_ITS ---
EXAMINATION: XR LUMBOSACRAL SPINE CLINICAL INFORMATION: Low back pain COMPARISON: None available. TECHNIQUE: Three views of the lumbosacral spine. FINDINGS: The visualized lumbar vertebrae are intact with normal alignment. Bilateral 12th ribs are rudimentary. Lateral sharp bridging syndesmophytes are seen from L1 to L3. Intervertebral disc spaces are markedly reduced at L2-L3. XR/XR lumbar spine 2-3V IMPRESSION: 1. Advanced L2-L3 degenerative lumbar disc disease. 2. Prominent L1-L3 lateral syndesmophytes are present. 3. No fracture or dislocation of lumbar spine is seen.
--- NOTE | ~2023-12-28 | XR_ITS ---
EXAMINATION: XR HAND, RIGHT CLINICAL INFORMATION: Right hand swelling and pain COMPARISON: None available. TECHNIQUE: PA, lateral, and oblique views of the right hand. FINDINGS: BONES: Bony structures are intact. There is no focal bone destruction or periosteal reaction seen. JOINTS: Alignment of joints is normal. SOFT TISSUE: Soft tissue is normal. Metal rings are seen in right thumb, proximal right third and fourth fingers causing partial obscuration. No radiopaque foreign body or abnormal air collection is seen. XR/XR hand RT 2V IMPRESSION: 1. Normal x-rays of right hand. No fracture or dislocation or signs of osteomyelitis are found.
== END 2023-12-28 16:31 | disposition home or self-care (01) ==
LOC: HO.XRAY 16:30
PROVIDERS: PCP Physician Assistant; Visit Provider Physician Assistant
DX: M79.641 Pain in right hand (principal); M54.50 Low back pain, unspecified; G89.29 Other chronic pain
CPT/HCPCS: 72100; 73120

== ENCOUNTER 2024-02-03 14:13 | Outpatient (AMB) | payer OTHER, SELFPAY ==
--- NOTE | 2024-02-03 14:15 | MHC.OFFVIS ---
Intake Vital Signs 02/03/24 14:23 Height 4 ft 5 in Weight 265 lb BMI 66.3 BP 130/68 Blood Pressure Location Lt brachial Position Sitting Respiration 17 Pulse 102 H Pulse Source Pulse Oximeter Pulse Oximetry (%) 96 Oxygen Delivery Method Room Air Intake Visit Reasons: Radiculopathy, lumbar region Intake Note: Patient comes in for initial visit was referred by [facility] Primary Care. Reports pain 6/10. Allergies bee pollen [BEE STINGS] Allergy (Severe, Verified 10/06/23 16:15) ANAPHYLAXIS Sulfa (Sulfonamide Antibiotics) [SULFA (SULFONAMIDE ANTIBIOTICS)] Allergy (Severe, Verified 10/06/23 16:15) ANAPHYLAXIS Penicillins [PENICILLINS] Allergy (Intermediate, Verified 10/06/23 16:15) RASH dill Allergy (Intermediate, Uncoded 10/06/23 16:05) asthma Milk Allergy (Intermediate, Uncoded 10/06/23 16:05) stomach pains HPI Radiculopathy, lumbar region HPI Details Patient is a pleasant 58 years old morbidly obese female presents today for initial evaluation of lower back pain with left sided radiculopathy. Denies any recent trauma, injury or falls. Reports mechanical fall in the past at her previous job. 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 Patient reports significant low back pain with radiation into her left lower extremity anteriorly. She also has bilateral knee and right hand. She is aware that her weight is major factor for chronic back and knee pain and has been working on her weight but finds dieting unsuccessful. Patient has been referred to our Weight Management team but is hesitant towards surgical option. She is interested in Nutritional Therapy referral as well as medical management. Patient lives on 2nd floor without elevator building complex. Reports significant back and knee pain with climbing and descending stairs, weight bearing and any movement in general. Denies any fever, abdominal or groin pain, foot drop, weakness, bladder or bowel dysfunction or saddle anesthesia. Patient reports good mental, family and social good support, she loves her current job. She is trying to loose significant amount of weight to improve her health, reduce pain, improve her sleep, increase walking capacity and standing/walking tolerance and quality of life as well as be more productive and efficient at her work. Patient reports her depression is well controlled with medication. Location Lower back radiating to LLE anteriorly, right hand, bilateral knee pain Duration Chronic pain, on and off, worsening for past one year Characteristics of symptom or complaint Aching, sore, dull, shooting, flashing, tingling, stinging, heavy Aggravating or associated factors Walking, bending, standing Relieving factors Ibuprofen, CBD oil, Tylenol, ice/heat therapy, topical applications Treatment Chiropractic therapy, acupuncture, TENS unit [facility] Medical History Screening for hypothyroidism Breast cancer screening Obese COVID-19 Physical exam BMI 50.0-59.9, adult Encounter to establish care Asthma Diverticulitis Surgical History Hx of colonoscopy Family History Mother Breast cancer Substance use disorder Brother High cholesterol Father Diverticulitis Other Mental health disorder Social History Household Members: Significant Other Housing: Apartment Alcohol intake: never Patient Tobacco Use Status: Former Tobacco user e-Cigarette/Vaping Use: Never Used Second Hand Smoke Exposure: No service: No Current occupational status: employed 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 Current occupational exposures/hazards: No Cognitive needs: No Hearing needs: No Vision needs: Yes (glasses) Review of Systems Const All systems reviewed & are unremarkable except as noted in HPI and below ENT Reports Normal hearing present Neuro Reports Normal hearing present, Denies confusion and Denies Sensory deficit (Neuro) Psych Denies confusion Physical Exam Vital Signs: Last Vital Signs Pulse 102 H 02/03/24 14:23 Resp 17 02/03/24 14:23 BP 130/68 02/03/24 14:23 Pulse Ox 96 02/03/24 14:23 Oxygen Delivery Method Room Air 02/03/24 14:23 BMI result Body Mass Index 66.3 Const General: cooperative, no acute distress and alert; No confusion Nutritional Appearance: obese morbidly obese Orientation/consciousness: patient oriented x3 and No confusion Limitations: no limitations HEENT Head: Yes normal to inspection, Yes normocephalic and Yes atraumatic Ears: hearing grossly normal bilaterally Face and sinus: Yes normal facial exam and Yes face symmetric Eyes General: appearance normal, both eyes and all related structures Neck Neck: Yes normal visual inspection, Yes full ROM, Yes no lymphadenopathy, Yes supple, No anterior neck swelling, Yes no JVD and Yes prominent dorsocervical fat pad Resp Effort & Inspection: normal respiratory effort, able to speak in complete sentences, no audible wheezes and no cough Cardio Jugular venous distension: no JVD Peripheral pulses: radial pulses present, posterior tibial pulses present and dorsalis pedis present GI Inspection: Yes Abdominal panniculus present and Yes obesity Palpation (GI): Soft to palpation and nontender General: Yes no CVA tenderness Back/Spine/Pelvis Other: Limited lumbar ROM due to pain and body habitus. Lumbar flexion and extension with lateral rotations reproduce significant pain. Mild tenderness in the projection of bilateral sacroiliac joint areas. Back: no CVA tenderness Cervical Spine: cervical ROM normal, cervical muscular tenderness and No Cervical spine tenderness Thoracic/Lumbar Spine: thoracic and lumbar spine normal to inspection, No Thoracic/lumbar spine scar(s), Lasegue's sign positive on the left and diffuse, pain with thoraco-lumbar ROM, paraspinal muscle tenderness, thoraco-lumbar ROM limited, No thoracic spinal tenderness and lumbar spinal tenderness at L3, at L4 and at L5 Pelvis: no pain with anterior-posterior compression, no pain with lateral compression and buttock tenderness on the left Sacroiliac joints: bilaterally tender to palpation Skin General skin exam: no rashes or lesions noted Neuro General: patient oriented x3, moves all extremities, Normal light touch and pain sensation, CN's II-XI intact bilaterally and No confusion Cranial nerves: Yes Normal hearing present Cognition (Neuro): normal cognition Gait exam (Neuro): Antalgic gait present and No Assistive device used Motor exam (neuro): 5/5 motor strength present throughout, no tremor noted and Motor abnormalities not present Sensory Exam: No Sensory deficit (Neuro) Extrem General: Yes capillary refill normal, Yes no calf tenderness and Yes pedal edema Right lower extremity: knee (limited ROM due to pain) Details: tenderness Location: of the patella, of the medial joint line and of the lateral joint line and crepitus; no swelling and no unusual warmth Left lower extremity: knee (limited ROM due to pain) Details: tenderness Location: of the patella, of the medial joint line and of the lateral joint line and crepitus; no swelling and no unusual warmth Psych Appearance: grossly normal Speech and movement: Normal speech and movement present Affect: normal affect Attitude: cooperative Thought process: Normal thought process present Thought content: Normal thought content present Insight: Good insight present (Psych) Judgement: Good judgement present (Psych) Results Reviewed Results Reviewed: XR LUMBOSACRAL SPINE 12/28/23 CLINICAL INFORMATION: FINDINGS: The visualized lumbar vertebrae are intact with normal alignment. Bilateral 12th ribs are rudimentary. Lateral sharp bridging syndesmophytes are seen from L1 to L3. Intervertebral disc spaces are markedly reduced at L2-L3. IMPRESSION: 1. Advanced L2-L3 degenerative lumbar disc disease. 2. Prominent L1-L3 lateral syndesmophytes are present. 3. No fracture or dislocation of lumbar spine is seen. Assessment & Plan Assessment & Plan (1) Bilateral knee pain: Code(s): M25.561 - Pain in right knee; M25.562 - Pain in left knee (2) Lumbar radiculopathy: Code(s): M54.16 - Radiculopathy, lumbar region (3) Chronic low back pain: Code(s): M54.50 - Low back pain, unspecified; G89.29 - Other chronic pain Qualifiers: Sciatica laterality: sciatica of left side Sciatica presence: with sciatica (4) Lumbosacral spondylosis: Code(s): M47.817 - Spondylosis without myelopathy or radiculopathy, lumbosacral region (5) Muscle spasm: Code(s): M62.838 - Other muscle spasm (6) Morbid obesity with BMI of 60.0-69.9, adult: Code(s): E66.01 - Morbid (severe) obesity due to excess calories; Z68.44 - Body mass index [BMI] 60.0-69.9, adult Plan Patient presents today with chronic lower back pain with radicular, facetogenic and discogenic pain components. Her mobility is limited due to significant morbid obesity and bilateral knee pain. We will proceed with lumbar spine MRI to assess for neural integrity, compression, evaluate for any degenerate endplate Modic changes and to follow up on recent lumbar spine xray findings. We will also obtain knee xrays prior to any interventional treatments and to assess degree of arthritis. Patient was referred to our [facility] Weight Management program but is hesitant toward surgical options. She would like to be referred to Medical Nutrition Therapy. Encouraged daily physical activity, adequate hydration, weight loss, aqua therapy and formal physical therapy. Discussed interventional treatments for low back pain, including therapeutic FIFI injections, diagnostic injections for potential RFA procedure. Given BMI>40, patient is not candidate for peripheral nerve stimulation. Script sent for methocarbamol for muscle stiffness and spasms. Side effects and precautions were reviewed with patient. All questions and concerns have been answered and patient agreed with the plan. Follow up for xray/MRI results and sooner as needed. Orders: Orders XR knee RT 3V 02/03/24 E66.01 - Morbid (severe) obesity due to excess calories, M25.561 - Pain in right knee, M25.562 - Pain in left knee XR knee LT 3V 02/03/24 E66.01 - Morbid (severe) obesity due to excess calories, M25.561 - Pain in right knee, M25.562 - Pain in left knee MR lumbar spine wo con 02/03/24 E66.01 - Morbid (severe) obesity due to excess calories, G89.29 - Other chronic pain, M47.817 - Spondylosis without myelopathy or radiculopathy, lumbosacral region, M54.16 - Radiculopathy, lumbar region, M54.50 - Low back pain, unspecified Referrals Medical Nutrition Therapy Referral E66.01 - Morbid (severe) obesity due to excess calories, M25.561 - Pain in right knee, M25.562 - Pain in left knee, M47.817 - Spondylosis without myelopathy or radiculopathy, lumbosacral region, Z68.44 - Body mass index [BMI] 60.0-69.9, adult Medications: New methocarbamol 750 mg PO Q8H 30 days 90 tabs 0RF muscle spasms G89.29 - Other chronic pain, M47.817 - Spondylosis without myelopathy or radiculopathy, lumbosacral region, M54.50 - Low back pain, unspecified, M62.838 - Other muscle spasm Coding Level of Care Code New Pt Level 4 (17906) Diagnoses Bilateral knee pain M25.561; M25.562 Lumbar radiculopathy M54.16 Chronic low back pain M54.50; G89.29 Sciatica laterality: sciatica of left side Sciatica presence: with sciatica Lumbosacral spondylosis M47.817 Muscle spasm M62.838 Morbid obesity with BMI of 60.0-69.9, adult E66.01; Z68.44
[2024-02-03 14:23] VITALS: BP 130/68; PULSE 102; RESP 17; O2SAT 96; BMI 66.3
== END 2024-02-03 15:18 | disposition home or self-care (01) ==
PROVIDERS: PCP Physician Assistant; Visit Provider Nurse Practitioner Family
DX: M25.561 Pain in right knee (principal); M25.562 Pain in left knee; M54.16 Radiculopathy, lumbar region; M54.50 Low back pain, unspecified; G89.29 Other chronic pain; M47.817 Spondylosis without myelopathy or radiculopathy, lumbosacral region; M62.838 Other muscle spasm; E66.01 Morbid (severe) obesity due to excess calories; Z68.44 Body mass index [BMI] 60.0-69.9, adult
CPT/HCPCS: 99204

== ENCOUNTER → 2024-02-03 14:13 | Outpatient (BNVA) | payer OTHER, SELFPAY | PROVIDERS: PCP Physician Assistant; Visit Provider Nurse Practitioner Family | DX: M25.561 Pain in right knee (principal); M25.562 Pain in left knee; M54.16 Radiculopathy, lumbar region; M54.50 Low back pain, unspecified; M47.817 Spondylosis without myelopathy or radiculopathy, lumbosacral region; M62.838 Other muscle spasm; G89.29 Other chronic pain; E66.01 Morbid (severe) obesity due to excess calories; Z68.44 Body mass index [BMI] 60.0-69.9, adult | CPT/HCPCS: 99202 ==

== ENCOUNTER 2024-08-31 13:57 | Outpatient (AMB) | payer OTHER, SELFPAY ==
--- NOTE | 2024-08-31 14:53 | HO.OFFWMMET ---
VS Expanded 08/31/24 15:03 BP 155/73 H Blood Pressure Location Rt brachial Blood Pressure Position Sitting Pulse 98 Pulse Source Pulse Oximeter Temp 98.0 F Temperature Source Temporal Artery Scan Pulse Oximetry 97 Oxygen Delivery Method Room Air Height 4 ft 6 in Weight 254 lb 12.8 oz BMI 61.4 Body Fat % 51.3 Body Fat Mass 130.8 Fat Free Mass 123.8 Visceral Fat Rating 24.0 Body Water % 34.5 Body Water Mass 88.0 Muscle Mass/Score 117.8 Basal Metabolic Rate/Score 1,778 Intake Visit Reasons: metabolic group session Medicaid Service Coordinator Required: No Allergies bee pollen [BEE STINGS] Allergy (Severe, Verified 08/31/24 14:57) ANAPHYLAXIS Sulfa (Sulfonamide Antibiotics) [SULFA (SULFONAMIDE ANTIBIOTICS)] Allergy (Severe, Verified 08/31/24 14:57) ANAPHYLAXIS Penicillins [PENICILLINS] Allergy (Intermediate, Verified 08/31/24 14:57) RASH dill Allergy (Intermediate, Uncoded 10/06/23 16:05) asthma Milk Allergy (Intermediate, Uncoded 10/06/23 16:05) stomach pains Medication List - Last Reconciled 08/31/24 by DEONDRE Brown albuterol sulfate 90 mcg/actuation 2 inhalations inhalation Q6-8H PRN CPAP (CPAP Machine/Device) CPAP machine and supplies fluoxetine 20 mg PO DAILY 90 days hydrochlorothiazide 25 mg PO DAILY 90 days ibuprofen 800 mg PO TID PRN methocarbamol 750 mg PO Q8H 30 days psyllium husk (Metamucil) 0.4 grams PO BID HPI Comments Details: Patient is a pleasant 58-year-old female who presents to the metabolic weight loss clinic today. She has underlying comorbidities including hypertension, hyperlipidemia, sleep apnea. She has tried multiple weight loss methods in the past although unsuccessful. She wishes to engage in the metabolic clinic pathway. [facility] Medical History Screening for hypothyroidism Breast cancer screening Obese COVID-19 Physical exam BMI 50.0-59.9, adult Encounter to establish care Asthma Diverticulitis Surgical History Hx of colonoscopy Family History Mother Breast cancer Substance use disorder Brother High cholesterol Father Diverticulitis Other Mental health disorder Social History Household Members: Significant Other Housing: Apartment Alcohol intake: never Patient Tobacco Use Status: Former Tobacco user e-Cigarette/Vaping Use: Never Used Second Hand Smoke Exposure: No service: No Current occupational status: employed 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 We will check a random glucose and hemoglobin A1c given the under diagnosis of diabetes and morbidly obese patient has. 1. You have been given a paper with a link to our software svitlana ([employer]) to generate an individualized nutritional and exercise plan specific for you. Please send me a screenshot of the plans you will generate Meal to include lean meat (beef, fish, pork, turkey, chicken), or faroese yogurt, or egg whites, or beans with a salad with olive oil and fruits (berries, pears, apples, kiwi). Avoid salt, breads, potatoes, rice, pasta, desserts. 2. If you choose shakes, each shake would be drunk slowly, like coffee over a period of 2 hours. 3. If you choose bars, cut each bar in 4 pieces and eat each piece in 30 min to make each bar last 2 hours. 4. I emphasized the importance of measuring accurately the food portion and measure it when serving the food on a plate 5. The meal portions include a specific number of forks of meat (protein) and salad. You always eat the meat portion but you can replace up to half of salad/vegetables portion with rice, potatoes or pasta, or a fruit ?if you like. The less you do it the better weight loss will be. 6. One full-size fork is what can be scooped on the fork without falling aside and not what can be bit with the fork. Use regular forks like those you find in a typical restaurant. 7.? Please send me weight measurements from your body composition scale as soon as possible and then once a week. Always include your diet and exercise plan. The best time to weigh yourself is first thing in the morning after going to the bathroom. 8. The best choice for exercise would be treadmill,elliptical or stationary bike at your local gym. Alternatively start walking outside daily, tracking calories with a goal of 300 calories per day, daily. You can download the svitlana [employer] which can track your time, distance and calories while walking outside. You press start in the svitlana when you start and then stop when you are finished. 9.?Goal is to lose at least 2-3 lbs per week 10. Please follow the diet plan exactly without any change. If you don't like something about the plan or you feel hungry you need to communicate with me so I can help you revise the plan. My cell phone number to communicate with me by text is [phone] Patient is morbidly obese and is not considered stable at this time.?I spent a total of 70 minutes reviewing/updating records, examining the patient and counseling the patient on weight management as detailed above. Orders: Orders Glucose Random Today E66.01 - Morbid (severe) obesity due to excess calories, Z68.44 - Body mass index [BMI] 60.0-69.9, adult Hemoglobin A1c Today E66.01 - Morbid (severe) obesity due to excess calories, Z68.44 - Body mass index [BMI] 60.0-69.9, adult
[2024-08-31 15:03] VITALS: BP 155/73; PULSE 98; TEMP 36.7; O2SAT 97; BMI 61.4
== END 2024-08-31 15:15 | disposition home or self-care (01) ==
LOC: HO.META 13:57
PROVIDERS: PCP Physician Assistant; Visit Provider Physician Assistant Surgical
DX: E66.01 Morbid (severe) obesity due to excess calories (principal)

== ENCOUNTER → 2024-08-31 13:57 | Outpatient (BNVA) | payer OTHER, SELFPAY | PROVIDERS: PCP Physician Assistant; Visit Provider Physician Assistant Surgical | DX: E66.01 Morbid (severe) obesity due to excess calories (principal); I10 Essential (primary) hypertension; E78.5 Hyperlipidemia, unspecified; G47.39 Other sleep apnea; Z71.3 Dietary counseling and surveillance; Z68.44 Body mass index [BMI] 60.0-69.9, adult | CPT/HCPCS: 99453 ==

== ENCOUNTER 2024-09-14 14:00 | Outpatient (AMB) | payer OTHER, SELFPAY ==
[2024-09-14 13:45] VITALS: BMI 59.8
--- NOTE | 2024-09-14 13:45 | HO.OFFWMMET ---
VS Expanded 09/14/24 13:45 Height 4 ft 6 in Weight 248 lb BMI 59.8 Intake Visit Reasons: TV F/U Metabolic Allergies bee pollen [BEE STINGS] Allergy (Severe, Verified 08/31/24 14:57) ANAPHYLAXIS Sulfa (Sulfonamide Antibiotics) [SULFA (SULFONAMIDE ANTIBIOTICS)] Allergy (Severe, Verified 08/31/24 14:57) ANAPHYLAXIS Penicillins [PENICILLINS] Allergy (Intermediate, Verified 08/31/24 14:57) RASH dill Allergy (Intermediate, Uncoded 10/06/23 16:05) asthma Milk Allergy (Intermediate, Uncoded 10/06/23 16:05) stomach pains HPI Comments Details: The patient is a pleasant 58-year-old female who returns to the metabolic clinic in follow-up. She initially presented on 08/31/2024 with a weight of 254.8 and a BMI of 61.4. Today she reports a weight of 248 lb with a BMI of 59.8. This corresponds to a 6.8 lb weight loss or 2.66% total body weight loss. She is using the right bmi svitlana, not following exactly, Doing less. Tried shakes and harder to regulate, bars worked better meal plan: atkins protein bar x 2 meal 10 forks protein and 10 forks of veggies. Drinknig 64 oz water daily Exercise [employer] yoga videos, daily walking outside [facility] Medical History Screening for hypothyroidism Breast cancer screening Obese COVID-19 Physical exam BMI 50.0-59.9, adult Encounter to establish care Asthma Diverticulitis Surgical History Hx of colonoscopy Family History Mother Breast cancer Substance use disorder Brother High cholesterol Father Diverticulitis Other Mental health disorder Social History Household Members: Significant Other Housing: Apartment Alcohol intake: never Patient Tobacco Use Status: Former Tobacco user e-Cigarette/Vaping Use: Never Used Second Hand Smoke Exposure: No service: No Current occupational status: employed 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 Current occupational exposures/hazards: No Cognitive needs: No Hearing needs: No Vision needs: Yes (glasses) Physical Exam Vital Signs: BMI result Body Mass Index 59.8 Telehealth Telehealth Telehealth Platform: Telephone Location of provider rendering services: practice address Location of patient: address on file Patient Identification confirmed using: Name, : Yes Telehealth method: voice only Patient verbally consented to treatment: Yes Patient verbally consented to billing insurance company: Yes Patient informed of any privacy concerns related to visit: Yes Minutes spent on Phone/Video with Pt.: 15 Assessment & Plan Assessment & Plan (1) Morbid obesity: Code(s): E66.01 - Morbid (severe) obesity due to excess calories Category: Medical Plan: Discussed with the patient the importance of following the meal plan exactly. She does not wish to have anything after dinner, she certainly may incorporate what was recommended after dinner split during the day if she wishes. Encouraged to increase exercise by way of going to the gym with her and doing specific cardiovascular activities and tracking her calories. Discussed tracking her calories using the [employer] svitlana while walking outside. We will have her return to the office as scheduled.
== END 2024-09-14 15:12 | disposition home or self-care (01) ==
LOC: HO.HBS 14:33
PROVIDERS: PCP Physician Assistant; Visit Provider Physician Assistant Surgical
DX: E66.813 Obesity, class 3 (principal); Z68.43 Body mass index [BMI] 50.0-59.9, adult
CPT/HCPCS: 99457

== ENCOUNTER → 2024-09-14 14:00 | Outpatient (BNVA) | payer OTHER, SELFPAY | PROVIDERS: PCP Physician Assistant; Visit Provider Physician Assistant Surgical | DX: E66.01 Morbid (severe) obesity due to excess calories (principal) ==

== ENCOUNTER 2024-10-31 09:30 | Outpatient (AMB) | payer OTHER, SELFPAY ==
--- NOTE | 2024-10-31 09:35 | HO.OFFWMMET ---
Intake Visit Reasons: TV F/U Metabolic Inside Upholsterer Required: No Allergies bee pollen [BEE STINGS] Allergy (Severe, Verified 08/31/24 14:57) ANAPHYLAXIS Sulfa (Sulfonamide Antibiotics) [SULFA (SULFONAMIDE ANTIBIOTICS)] Allergy (Severe, Verified 08/31/24 14:57) ANAPHYLAXIS Penicillins [PENICILLINS] Allergy (Intermediate, Verified 08/31/24 14:57) RASH dill Allergy (Intermediate, Uncoded 10/06/23 16:05) asthma Milk Allergy (Intermediate, Uncoded 10/06/23 16:05) stomach pains Medication List - Last Reconciled 10/31/24 by DEONDRE Brown albuterol sulfate 90 mcg/actuation 2 inhalations inhalation Q6-8H PRN blood pressure kit-extra large As directed CPAP (CPAP Machine/Device) CPAP machine and supplies fluoxetine 20 mg PO DAILY 90 days hydrochlorothiazide 25 mg PO DAILY 90 days ibuprofen 800 mg PO TID PRN methocarbamol 750 mg PO Q8H 30 days psyllium husk (Metamucil) 0.4 grams PO BID HPI Comments Details: The patient is a pleasant 58-year-old female who returns to the metabolic clinic in follow-up. She initially presented on 08/31/2024 with a weight of 254.8 and a BMI of 61.4. Today she reports a weight of 245.2 lb with a BMI of 59.1. This corresponds to a 9.6 lb weight loss or 3.7% total body weight loss. She is using the right bmi svitlana, although has had some dietary indiscretions, when she does she is having less quantity. She is very happy to report that her exercise tolerance has improved and she feels much better since starting our program. She does report a couple of episodes of lightheadedness. She does take hydrochlorothiazide at home and states her blood pressure cuff does not fit. We will send in a prescription for a new 1 of extra large size. meal plan: atkins protein bar x 2 meal 10 forks protein and 10 forks of veggies. Drinknig 64 oz water daily Exercise: [employer] yoga videos, daily 30-45 min walking outside [facility] Medical History Screening for hypothyroidism Breast cancer screening Obese COVID-19 Physical exam BMI 50.0-59.9, adult Encounter to establish care Asthma Diverticulitis Surgical History Hx of colonoscopy Family History Mother Breast cancer Substance use disorder Brother High cholesterol Father Diverticulitis Other Mental health disorder Social History Household Members: Significant Other Housing: Apartment Alcohol intake: never Patient Tobacco Use Status: Former Tobacco user e-Cigarette/Vaping Use: Never Used Second Hand Smoke Exposure: No service: No Current occupational status: employed 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 Current occupational exposures/hazards: No Cognitive needs: No Hearing needs: No Vision needs: Yes (glasses) Telehealth Telehealth Telehealth Platform: Telephone Location of provider rendering services: practice address Location of patient: address on file Patient Identification confirmed using: Name, : Yes Telehealth method: voice only Patient verbally consented to treatment: Yes Patient verbally consented to billing insurance company: Yes Patient informed of any privacy concerns related to visit: Yes Minutes spent on Phone/Video with Pt.: 20 Assessment & Plan Assessment & Plan (1) Morbid obesity: Code(s): E66.01 - Morbid (severe) obesity due to excess calories Category: Medical Plan: Encouraged to follow the meal plan exactly. Encouraged to reassess her meal plan within the svitlana as she has lost approximately 10 lb since starting the program. Encouraged to go to [facility] gym with her to very her exercise routine as she is now improving her exercise tolerance. Continue to text weight measurements weekly and text with any questions or concerns. (2) HTN (hypertension): Code(s): I10 - Essential (primary) hypertension Category: Medical Qualifiers: Hypertension type: primary hypertension Qualified Code(s): I10 - Essential (primary) hypertension Plan: New prescription sent in for extra large blood pressure cuff so she may monitor her blood pressure accurately. Medications: New blood pressure kit-extra large As directed 1 ea 0RF
== END 2024-10-31 10:15 | disposition home or self-care (01) ==
LOC: HO.HBS 09:56
PROVIDERS: PCP Physician Assistant; Visit Provider Physician Assistant Surgical
DX: E66.01 Morbid (severe) obesity due to excess calories (principal); Z68.43 Body mass index [BMI] 50.0-59.9, adult; I10 Essential (primary) hypertension
CPT/HCPCS: 99457

== ENCOUNTER 2024-12-14 14:03 | Outpatient (AMB) | payer OTHER, SELFPAY ==
--- NOTE | 2024-12-14 10:00 | MHC.OFFVISWM ---
Intake Visit Reasons: TV F/U Metabolic Allergies bee pollen [BEE STINGS] Allergy (Severe, Verified 08/31/24 14:57) ANAPHYLAXIS Sulfa (Sulfonamide Antibiotics) [SULFA (SULFONAMIDE ANTIBIOTICS)] Allergy (Severe, Verified 08/31/24 14:57) ANAPHYLAXIS Penicillins [PENICILLINS] Allergy (Intermediate, Verified 08/31/24 14:57) RASH dill Allergy (Intermediate, Uncoded 10/06/23 16:05) asthma Milk Allergy (Intermediate, Uncoded 10/06/23 16:05) stomach pains HPI Comments Details: The patient is a pleasant 59-year-old female who returns to the metabolic clinic in follow-up. She initially presented on 08/31/2024 with a weight of 254.8 and a BMI of 61.4. Today she reports a weight of 248 lb with a BMI of 59.5. This corresponds to a 6.8 lb weight loss or 2.6% total body weight loss. She is using the right bmi svitlana, although has had some dietary indiscretions, when she does she is having less quantity. States she stopped exercising and did not follow the plan over the holidays. meal plan: atkins protein bar x 2 meal 10 forks protein and 10 forks of veggies. Drinknig 64 oz water daily Exercise: [employer]DP[employer] yoga videos, daily 30-45 min walking outside [facility] Medical History Screening for hypothyroidism Breast cancer screening Obese COVID-19 Physical exam BMI 50.0-59.9, adult Encounter to establish care Asthma Diverticulitis Surgical History Hx of colonoscopy Family History Mother Breast cancer Substance use disorder Brother High cholesterol Father Diverticulitis Other Mental health disorder Social History Household Members: Significant Other Housing: Apartment Alcohol intake: never Patient Tobacco Use Status: Former Tobacco user e-Cigarette/Vaping Use: Never Used Second Hand Smoke Exposure: No service: No Current occupational status: employed 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
--- NOTE | 2024-12-14 14:27 | HO.OFFWMMET ---
VS Expanded 12/14/24 14:28 Height 4 ft 6 in Weight 248 lb BMI 59.8 Intake Visit Reasons: TV F/U Metabolic Allergies bee pollen [BEE STINGS] Allergy (Severe, Verified 08/31/24 14:57) ANAPHYLAXIS Sulfa (Sulfonamide Antibiotics) [SULFA (SULFONAMIDE ANTIBIOTICS)] Allergy (Severe, Verified 08/31/24 14:57) ANAPHYLAXIS Penicillins [PENICILLINS] Allergy (Intermediate, Verified 08/31/24 14:57) RASH dill Allergy (Intermediate, Uncoded 10/06/23 16:05) asthma Milk Allergy (Intermediate, Uncoded 10/06/23 16:05) stomach pains Medication List - Last Reconciled 12/14/24 by DEONDRE Brown albuterol sulfate 90 mcg/actuation 2 inhalations inhalation Q6-8H PRN blood pressure kit-extra large As directed CPAP (CPAP Machine/Device) CPAP machine and supplies fluoxetine 20 mg PO DAILY 90 days hydrochlorothiazide 25 mg PO DAILY 90 days ibuprofen 800 mg PO TID PRN methocarbamol 750 mg PO Q8H 30 days psyllium husk (Metamucil) 0.4 grams PO BID HPI Comments Details: The patient is a pleasant 58-year-old female who returns to the metabolic clinic in follow-up. She initially presented on 08/31/2024 with a weight of 254.8 and a BMI of 61.4. Today she reports a weight of 248 lb with a BMI of 59.5. This corresponds to a 9.6 lb weight loss or 3.7% total body weight loss. She is using the right bmi svitlana, although has had some dietary indiscretions, she did not follow the meal plan over the holidays. She stopped exercising. She is not measuring her food quantities. meal plan: atkins protein bar x 2 meal 10 forks protein and 10 forks of veggies. Drinknig 64 oz water daily Exercise: has membership to [employer] yoga videos, daily 30-45 min walking outside [facility] Medical History Screening for hypothyroidism Breast cancer screening Obese COVID-19 Physical exam BMI 50.0-59.9, adult Encounter to establish care Asthma Diverticulitis Surgical History Hx of colonoscopy Family History Mother Breast cancer Substance use disorder Brother High cholesterol Father Diverticulitis Other Mental health disorder Social History Household Members: Significant Other Housing: Apartment Alcohol intake: never Patient Tobacco Use Status: Former Tobacco user e-Cigarette/Vaping Use: Never Used Second Hand Smoke Exposure: No service: No Current occupational status: employed 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 Current occupational exposures/hazards: No Cognitive needs: No Hearing needs: No Vision needs: Yes (glasses) Telehealth Telehealth Telehealth Platform: Telephone Location of provider rendering services: practice address Location of patient: address on file Patient Identification confirmed using: Name, : Yes Telehealth method: voice only Patient verbally consented to treatment: Yes Patient verbally consented to billing insurance company: Yes Patient informed of any privacy concerns related to visit: Yes Minutes spent on Phone/Video with Pt.: 15 Assessment & Plan Assessment & Plan (1) Morbid obesity with BMI of 60.0-69.9, adult: Code(s): E66.01 - Morbid (severe) obesity due to excess calories; Z68.44 - Body mass index [BMI] 60.0-69.9, adult Category: Medical Plan: Discussed the importance of adherence to the meal plan and exercise plan. She states she is going to join the [employer] with her . She states that she is going to begin to measure her meal portions. We will have her return to the office in approximately 6 weeks. Encouraged to text weight weekly and text with any questions or concerns
[2024-12-14 14:28] VITALS: BMI 59.8
== END 2024-12-14 14:32 | disposition home or self-care (01) ==
LOC: HO.HBS 14:03
PROVIDERS: PCP Physician Assistant; Visit Provider Physician Assistant Surgical
DX: E66.01 Morbid (severe) obesity due to excess calories (principal); Z68.44 Body mass index [BMI] 60.0-69.9, adult

== ENCOUNTER → 2024-12-14 14:03 | Outpatient (BNVA) | payer OTHER, SELFPAY | PROVIDERS: PCP Physician Assistant; Visit Provider Physician Assistant Surgical | DX: E66.01 Morbid (severe) obesity due to excess calories (principal); Z68.43 Body mass index [BMI] 50.0-59.9, adult | CPT/HCPCS: 99454 ==

== ENCOUNTER 2024-12-31 13:43 | Outpatient (REF) | payer OTHER, SELFPAY | END 2024-12-31 13:44 | disposition home or self-care (01) | LOC: HO.MAMMO 13:43 | PROVIDERS: PCP Physician Assistant; Visit Provider Physician Assistant | DX: Z12.31 Encounter for screening mammogram for malignant neoplasm of breast (principal) | CPT/HCPCS: 77063; 77067 ==

== ENCOUNTER → 2024-12-31 14:00 | Outpatient (BNV) | payer OTHER, SELFPAY | PROVIDERS: PCP Physician Assistant; Visit Provider Internal Medicine | DX: Z12.31 Encounter for screening mammogram for malignant neoplasm of breast (principal) | CPT/HCPCS: 77063; 77067 ==

== ENCOUNTER 2025-04-15 13:39 | Outpatient (REF) | payer OTHER, SELFPAY ==
[2025-04-15 14:45] LABS: Hematocrit 41.3 % (37.0-47.0); Hemoglobin 13.7 g/dl (12.0-16.0); Mean Corpuscular HGB Conc 33.2 g/dl (31.0-35.0); Mean Corpuscular Hemoglobin 30.6 pg (27.0-33.0); Mean Corpuscular Volume 92.4 fL (80.0-98.0); Mean Platelet Volume 9.5 fL (9.4-12.3); Platelet Count 301 X10*3/uL (160-400); Red Blood Count 4.47 X10*6/uL (4.20-5.50); Red Cell Distribution Width 13.2 % (11.0-16.0); White Blood Count 10.2 X10*3/uL (4.8-10.8)
[2025-04-15 14:55] LABS: Estimated Average Glucose 105 mg/dL; Hemoglobin A1C 126.9189 umol/L; Hemoglobin A1c % 5.3 % (<6.0); Total Hemoglobin (HGBA1C) 3683.2739 umol/L
[2025-04-15 15:17] LABS: Alanine Aminotransferase 46 U/L (0-31); Albumin Level 4.2 g/dL (3.5-5.0); Alkaline Phosphatase 133 U/L (39-117); Anion Gap 15 (12-20); Aspartate Amino Transferase 38 U/L (5-31); Bilirubin Total 0.5 mg/dL (0.0-1.0); Blood Urea Nitrogen 13 mg/dL (9-16); Calcium 9.6 mg/dL (8.4-10.2); Carbon Dioxide 25 mmol/L (22-29); Chloride 103 mmol/L (96-108); Cholesterol 234 mg/dL (<200); Estimated Glomerular Filt Rate > 60; Glucose Fasting 78 mg/dL (60-99); HDL Cholesterol 51 mg/dL (>40); Sodium 139 mmol/L (135-145); Total Protein 7.6 g/dL (6.5-8.0)
[2025-04-15 15:55] LABS: LDL Cholesterol Calculated 149 mg/dL (<100); Triglycerides 171 mg/dL (<150)
[2025-04-15 16:33] LABS: Creatinine Urine 19.61 mg/dL; Microalbum/Creatinine Ratio Ur 30.5 ug/mg cr (<30)
== END 2025-04-15 13:40 | disposition home or self-care (01) ==
LOC: HO.LAB 13:39
PROVIDERS: PCP Physician Assistant; Visit Provider Physician Assistant
DX: E78.2 Mixed hyperlipidemia (principal); I10 Essential (primary) hypertension; E66.01 Morbid (severe) obesity due to excess calories
CPT/HCPCS: 36415; 80053; 80061; 82043; 82570; 83036; 85027

== ENCOUNTER 2025-04-18 13:24 | Outpatient (AMB) | payer OTHER, SELFPAY ==
[2025-04-18 13:36] VITALS: BP 100/62; PULSE 86; TEMP 36.2; O2SAT 98; BMI 62.2
--- NOTE | 2025-04-18 13:36 | A.OFFPC_ITS ---
Vital Signs 04/18/25 13:36 Height 4 ft 6 in Weight 258 lb 2 oz BMI 62.2 BP 100/62 Blood Pressure Location Lt brachial Position Sitting Pulse 86 Pulse Source Pulse Oximeter Temp 97.1 F Temp Source Temporal Artery Scan Pulse Oximetry (%) 98 Oxygen Delivery Method Room Air Intake Visit Reasons: CPE- Labs Request Financial Compliance Manager Required: No Accompanied by: Self / Same As Patient Allergies bee pollen [BEE STINGS] Allergy (Severe, Verified 04/18/25 14:06) ANAPHYLAXIS Sulfa (Sulfonamide Antibiotics) [SULFA (SULFONAMIDE ANTIBIOTICS)] Allergy (Severe, Verified 04/18/25 14:06) ANAPHYLAXIS Penicillins [PENICILLINS] Allergy (Intermediate, Verified 04/18/25 14:06) RASH dill Allergy (Intermediate, Uncoded 04/18/25 14:06) asthma Milk Allergy (Intermediate, Uncoded 04/18/25 14:06) stomach pains Medication List - Last Reconciled 04/18/25 by Vlad Torres PA-C albuterol sulfate 90 mcg/actuation 2 inhalations inhalation Q6-8H PRN blood pressure kit-extra large As directed CPAP (CPAP Machine/Device) CPAP machine and supplies fluoxetine 20 mg PO DAILY 90 days hydrochlorothiazide 25 mg PO DAILY 90 days ibuprofen 800 mg PO TID PRN methocarbamol 750 mg PO Q8H 30 days psyllium husk (Metamucil) 0.4 grams PO BID Tobacco use date assessed: 04/18/25 Dental Screening Dental Screen Date: 04/18/25 Did you have a dental visit in the last 12 months?: Yes Did you have a dental problem in the last 6 months where you did not have access to dental care?: No Was dental information given to patient?: Patient has dentist HPI CPE- Labs Request HPI Details Patient is a 57-year-old female here today for follow-up visit. Patient has a past medical history significant for major depressive disorder, asthma, obesity, ISABEL, diverticulitis. Patient is followed by gastroenterology and continues on p.r.n. use of laxatives and fiber supplementation for chronic constipation. Has a h/o diverticulitis. Has made some dietary changes which has helped her GI symptoms. Concern--> patient continues to have left lower extremity numbness and tingling particularly when standing or walking for long periods of time. Of note lumbar x-ray in 2023 did show advanced L2-L3 lumbar disc disease. PLAN: Will try for physical therapy as patient's signs symptoms are consistent with lumbar stenosis. Will try for an MRI to evaluate for major disc herniation .. Asthma: Has been well controlled, She report her allergies are primarily allergy related .. MDD: Does report her mental health has been stable with current mental health medications. She does not speak with a mental health therapist or psychiatrist at this time. .. Class 3 Obesity: She does understand her BMI is well over 40 and she is not interested in bariatric surgery at this time. She has seen the weight ma nagement program though felt it was too strict. She does report having some worsening bilateral knee pain and left lateral hip pain and occasional numbness over her lateral thigh. She attributes these symptom. Mammogram: UTd with mammo Colorectal cancer screening : colon done in 2019 -normal repeat 10 years [employer]: needs PAP screening Laboratory Tests 03/20/22 04/15/25 04/15/25 09:56 13:50 13:53 RBC 4.40 4.47 Hgb 13.7 Creatinine 0.72 Fasting Glucose 78 Hemoglobin A1c % 5.3 AST 38 H ALT 46 H Cholesterol 240 234 H LDL Cholesterol, C alc 159 Urine Microalbumin 6.0 PFSH Medical History Screening for hypothyroidism Breast cancer screening Obese COVID-19 Physical exam BMI 50.0-59.9, adult Encounter to establish care Asthma Diverticulitis Surgical History Hx of colonoscopy Family History Mother Breast cancer Substance use disorder Brother High cholesterol Father Diverticulitis Other Mental health disorder Social History (Updated 04/18/25 @ 14:12 by Vlad Torres PA-C) Household Members: Significant Other Housing: Apartment Alcohol intake: never Patient Tobacco Use Status: Former Tobacco user e-Cigarette/Vaping Use: Never Used Second Hand Smoke Exposure: No service: No Current occupational status: employed 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 1. Little interest or pleasure in doing things: not at all 2. Feeling down, depressed, or hopeless: not at all 3. Trouble falling or staying asleep, or sleeping too much: not at all 4. Feeling tired or having little energy: not at all 5. Poor appetite or overeating: not at all 6. Feeling bad about yourself - or that you are a failure or have let yourself or your family down: not at all 7. Trouble concentrating on things, such as reading the newspaper or watching television: not at all 8. Moving or speaking so slowly that other people could have noticed. Or the opposite - being so fidgety or restless that you have been moving around a lot more than usual: not at all 9. Thoughts that you would be better off or of hurting yourself in some way: not at all Total score: 0 Depression Screening Interpretation: Negative Depression Screening Done: Yes [id number] - PHQ-9 Billing: Yes Source: Developed by Drs. Sandip Morrissey, Bindu Da Silva, Stuart Jones and colleagues, with an educational driss from [employer]. Thrive Questionnaire Date Thrive assessed: 04/18/25 I am a: Patient What is your living situation today?: I have a steady place to live Within the past 12 months, did the food you bought not last and you didn't have the money to get more?: Sometimes True Within the past 12 months, did you worry whether your food would run out before you got money to buy more?: Sometimes True Do you have trouble paying for medicines?: No Do you have trouble getting transportation to medical appointments?: No Do you have trouble paying your heating and electricity bill?: No Do you have trouble taking care of your child, family member or friend?: No Do you have trouble with day-to-day activities such as bathing, preparing meals, shopping, managing finances, etc.?: No Are you currently unemployed and looking for a job?: No Are you interested in more education?: I choose not to answer this question Please select the resources that you would like help with: None Currently or been in a relationship where the following occur: No concerns reported THRIVE Score: 2 AUDIT C Alcohol Use Questionnaire (AUDIT-C) 1. How often do you have a drink containing alcohol?: Never 3. How often do you have six or more drinks on one occasion?: Never Total Score: 0 CARMELA-7 AMB Questionnaire CARMELA-7 Date CARMELA - 7 assessed: 04/18/25 Feeling nervous, anxious, or on edge: 0 = Not at all Not being able to stop or control worryin = Not at all Worrying too much about different things: 0 = Not at all Trouble relaxin = Not at all Being so restless that it is hard to sit still: 0 = Not at all Becoming easily annoyed or irritable: 0 = Not at all Feeling afraid as if something awful might happen: 0 = Not at all Total CARMELA-7 score (0-4 normal; 5-9 mild; 10-14 moderate; 15-21 severe): 0 Source: Developed by Drs. Sandip Morrissey, Bindu Da Silva, Stuart Jones and colleagues, with an educational driss from [employer]. CARMELA-7 Assessment Billing CARMELA-7 Assessment Tool: CARMELA-7 Assessment 02932 Review of Systems Const Denies body aches, Denies chills, Denies excessive sweating, Denies fatigue, Denies fever(s) and Denies headache(s) Eyes Denies blurry vision ENT Denies dysphagia, Denies vertigo, Denies dizziness, Denies headache(s), Denies hearing loss and Denies tinnitus Card Denies chest pain, Denies chest pain with activity, Denies syncope, Denies irregular heart rhythm and Denies dyspnea Resp Denies chest congestion, Denies cough, Denies hemoptysis, Denies dyspnea and Denies wheezing GI Denies abdominal pain, Denies melena, Denies hematochezia, Denies coffee ground emesis, Denies dysphagia, Denies diarrhea, Denies nausea and Denies vomiting Denies urinary frequency, Denies dysuria, Denies urinary hesitancy and Denies urinary urgency Musc Denies arthralgias, Denies limited range of motion, Denies muscle cramps and De nies muscle weakness Skin/Breast Denies rash and Denies skin ulcer Neuro Denies Abnormal speech present, Denies confusion, Denies vertigo, Denies dizz iness, Denies syncope, Denies headache(s), Denies memory loss and Denies seizure-like activity Psych Denies anxiety, Denies confusion, Denies depression, Denies memory loss, Denies panic attacks and Denies paranoia Endo Denies excessive sweating, Denies fatigue, Denies flushing, Denies polydipsia and Denies polyuria Aller/Immun Denies wheezing Physical exam (Primary Care) Vital Signs: Last Vital Signs Temp 97.1 F 04/18/25 13:36 Pulse 86 04/18/25 13:36 BP 100/62 04/18/25 13:36 Pulse Ox 98 04/18/25 13:36 Oxygen Delivery Method Room Air 04/18/25 13:36 BMI result Body Mass Index 62.2 Tobacco/Smoking Status: Tobacco use Status Tobacco use date assessed 04/18/25 04/18/25 13:48 Patient Tobacco Use Status Former Tobacco user 04/18/25 14:12 e-Cigarette/Vaping Use Never Used 04/18/25 14:12 PHQ-9: PHQ-9 Score PHQ-9: Total score 0 04/18/25 14:10 Depression Screening Interpretation: Negative Thrive Assessment: Date of Thrive Assessment Date Thrive assessed 04/18/25 04/18/25 13:37 Currently or been in a relationship where the following occur: No concerns reported Const General: cooperative, comfortable, no acute distress, alert and awake; No confusion Orientation/consciousness: oriented to person, oriented to place, patient oriented x3 and No confusion HENMT Head: Yes normocephalic Ears: external ears normal and TM's normal bilaterally Face and sinus: No sinus tenderness Mouth: Normal oral and palatal mucosa present and tongue normal Teeth and gingiva: dentition normal and gingiva normal Throat: Yes posterior oropharynx normal, Yes tonsils normal and Yes uvula midline Eyes Conjunctivae: conjunctivae normal Sclerae: sclerae normal Pupils: Equal, round and reactive pupils present EOM: EOMs intact bilaterally Direct Ophthalmoscopy: No no photophobia Neck Neck: Yes no lymphadenopathy, No tender and Yes no JVD Thyroid: Thyroid normal Carotids: no bruits Chest Chest palpation & inspection: no tenderness Resp Effort & Inspection: normal respiratory effort, no audible wheezes, not labored and no stridor Auscultation: no crackles, no rales, no rhonchi and no wheezes Cardio Jugular venous distension: no JVD Rate: regular rate, not bradycardic and not tachycardic Rhythm: regular rhythm Bruits: no carotid bruits Peripheral pulses: Peripheral pulses 2+ throughout GI Inspection: Yes normal to inspection, No abdominal wall ecchymosis and No visible herniation Palpation (GI): Soft to palpation, nontender, no guarding, not rigid and No hepatosplenomegaly present Auscultation: normoactive bowel sounds General: Yes no CVA tenderness Back/Spine/Pelvis Back: no CVA tenderness and No back tenderness Cervical Spine: cervical ROM normal Thoracic/Lumbar Spine: thoracic and lumbar spine normal to inspection, straight leg raise negative bilaterally, No thoraco-lumbar ROM limited and No lumbar spinal tenderness Skin Lesions: no lesions Rashes: no rashes Wounds: no wounds Neuro General: oriented to person, oriented to place, patient oriented x3, CN's II-XI intact bilaterally and No confusion Cranial nerves: Yes Equal, round and reactive pupils present and Yes Normal accommodation reflex present Cognition (Neuro): normal cognition Speech: No Abnormal speech present Gait exam (Neuro): Normal gait present Motor exam (neuro): 5/5 motor strength present throughout Extrem Right upper extremity: full ROM; no cyanosis Left upper extremity: full ROM; no cyanosis Right lower extremity: no edema Left lower extremity: no edema Psych Appearance: grossly normal Mental Status: mental status grossly normal Affect: normal affect Attitude: cooperative Thought process: Normal thought process present Coding Level of Care Code Est Pt Prev Care 40-64y(62384) Diagnoses Annual physical exam Z00.00 GALINDO (nonalcoholic steatohepatitis) K75.81 Primary hypertension I10 Hypertension type: primary hypertension Mixed hyperlipidemia E78.2 Hyperlipidemia type: mixed hyperlipidemia Lumbar radicular syndrome M54.16 Cervical cancer screening Z12.4 MDD (major depressive disorder), recurrent episode, moderate F33.1 Class 3 obesity E66.813 Additional Codes CARMELA-7 Assessment Billing - CARMELA-7 Assessment Tool: CARMELA-7 Assessment [id number] ([id number]) PHQ-9 - 47568 - PHQ-9 Billing: Yes ([id number]) Assessment & Plan Assessment & Plan (1) Annual physical exam: Code(s): Z00.00 - Encounter for general adult medical examination without abnormal findings Category: Medical Plan: As per HPI (2) GALINDO (nonalcoholic steatohepatitis): Code(s): K75.81 - Nonalcoholic steatohepatitis (GALINDO) Category: Medical Plan: Patient's most recent liver enzymes slightly elevated, patient does have a history of nonalcoholic legs fatty liver disease. She will continue working on lifestyle and dietary modifications to reduce her weight. (3) HTN (hypertension): Code(s): I10 - Essential (primary) hypertension Category: Medical Qualifiers: Hypertension type: primary hypertension Qualified Code(s): I10 - Essential (primary) hypertension Plan: Patient's blood pressure acceptable today in office. Continues on hydrochlorothiazide with good effect. (4) HLD (hyperlipidemia): Code(s): E78.5 - Hyperlipidemia, unspecified Category: Medical Qualifiers: Hyperlipidemia type: mixed hyperlipidemia Qualified Code(s): E78.2 - Mixed hyperlipidemia Plan: Patient's most recent lipid panel showing borderline high cholesterol a. We did discuss starting low-dose oral medication to help her reduce her cholesterol and she is willing. Will start low-dose statin therapy with goal LDL to be below 130 (5) Lumbar radicular syndrome: Code(s): M54.16 - Radiculopathy, lumbar region Category: Medical Plan: As per HPI patient continues to have left hip and lower leg numbness and tingling particularly when standing or walking for long periods of time. Signs symptoms concerning for lumbar disc herniation / lumbar stenosis. Will send for MRI to evaluate for moderate to severe lumbar disc herniation. She is willing and open to do physical therapy for this. (6) Cervical cancer screening: Code(s): Z12.4 - Encounter for screening for malignant neoplasm of cervix Category: Medical Plan: Patient is in need of Pap screening. (7) MDD (major depressive disorder), recurrent episode, moderate: Code(s): F33.1 - Major depressive disorder, recurrent, moderate Category: Medical Plan: Patient's PHQ-9 score 0 today in office. She has a history of major depressive disorder though feels currently her depression not been a problem. (8) Class 3 obesity: Code(s): E66.813 - Obesity, class 3 Category: Medical Plan: Patient does understand her BMI is over 60 and will work on trying to be more physically active and adapt to better eating habits to reduce her weight. She has tried the bariatric program though can not stay consistent with the recommendations. She is not able to be as physically active due to her lower lumbar spine and leg issue which will be investigating. Orders: Orders MR lumbar spine wo con 04/18/25 M54.16 - Radiculopathy, lumbar region PT Evaluation and Treatment 04/18/25 M51.9 - Unspecified thoracic, thoracolumbar and lumbosacral intervertebral disc disorder, M54.16 - Radiculopathy, lumbar region Comprehensive [place]. Panel Fast 04/18/25 I10 - Essential (primary) hypertension Complete Blood Count no Diff 04/18/25 I10 - Essential (primary) hypertension Lipid Panel Today E78.2 - Mixed hyperlipidemia Referrals DIRECTOR SURFACE TRANSPORTATION Referral Z12.4 - Encounter for screening for malignant neoplasm of cervix Medications: New atorvastatin 10 mg PO DAILY 90 days 90 tabs 1RF E78.2 - Mixed hyperlipidemia
== END 2025-04-18 14:40 | disposition home or self-care (01) ==
LOC: HO.HMCH 13:25
PROVIDERS: PCP Physician Assistant; Visit Provider Physician Assistant
DX: Z00.00 Encounter for general adult medical examination without abnormal findings (principal); F33.1 Major depressive disorder, recurrent, moderate; E66.813 Obesity, class 3; Z68.44 Body mass index [BMI] 60.0-69.9, adult; K75.81 Nonalcoholic steatohepatitis (NASH); I10 Essential (primary) hypertension; E78.2 Mixed hyperlipidemia; M54.16 Radiculopathy, lumbar region

== ENCOUNTER → 2025-04-18 13:24 | Outpatient (BNVA) | payer OTHER, SELFPAY | PROVIDERS: PCP Physician Assistant; Visit Provider Physician Assistant | DX: Z00.00 Encounter for general adult medical examination without abnormal findings (principal); K59.04 Chronic idiopathic constipation; J45.909 Unspecified asthma, uncomplicated; E66.813 Obesity, class 3; M25.561 Pain in right knee; M25.562 Pain in left knee; M25.552 Pain in left hip; K75.81 Nonalcoholic steatohepatitis (NASH); I10 Essential (primary) hypertension; E78.2 Mixed hyperlipidemia; M54.16 Radiculopathy, lumbar region; F33.1 Major depressive disorder, recurrent, moderate; M51.9 Unspecified thoracic, thoracolumbar and lumbosacral intervertebral disc disorder; Z91.09 Other allergy status, other than to drugs and biological substances; Z87.891 Personal history of nicotine dependence; Z68.44 Body mass index [BMI] 60.0-69.9, adult | CPT/HCPCS: 96127; 99396 ==

== ENCOUNTER 2025-09-25 12:11 | Emergency (ER) | payer OTHER, SELFPAY ==
--- NOTE | ~2025-09-25 | XR_ITS ---
EXAMINATION: XR HIP, RIGHT CLINICAL INFORMATION: no trauma but not ambulatory COMPARISON: Right hip pain. No trauma TECHNIQUE: Two views of the right hip. AP view pelvis one view FINDINGS: AP pelvis: There is normal symmetry of bilateral SI joints. Mild reduction bilateral hip joint spaces noted no visible fracture, lytic or sclerotic process seen. The soft tissues are normal. AP and frog-leg views right hip reveal mild reduction in right hip joint space without any bony erosive changes or loose bodies. No acute fracture or dislocation seen. No lytic process. XR/XR hip RT w [id number] IMPRESSION: Mild degenerative changes bilateral hip joints. No visible acute fracture or dislocation seen in the pelvis on the right hip. Electronically signed by: Gigi Mack MD 09/25/2025 03:33 PM EDT
[2025-09-25 12:32] VITALS: BP 162/69; PULSE 78; RESP 18; TEMP 36.6; O2SAT 98; BMI 63.4
--- NOTE | 2025-09-25 12:48 | ED.GENADULT ---
HPI - General Adult General Chief complaint: Extremity Injury, Lower Stated complaint: R leg inj, cant bare weight Time Seen by Provider: 09/25/25 15:17 Source: patient and family Mode of arrival: ambulatory Limitations: no limitations History of Present Illness ED Provider: DR. Barclay HPI narrative: 59-year-old female came in for evaluation of right lower extremity pain for 3 days, patient stated last had to climb lots of stairs then on Tuesday woke up with low back pain radiating down to the right lower extremity pain is worse with movement, no weakness, no numbness, no urinary incontinence, no stool incontinence, no loss of sensation, no recent travel, no lower extremity swelling or tenderness. Patient waited before medical evaluation was hoping to get better. Patient had history of diverticulitis that is require 4 days hospitalization in the past patient declined any abdominal pain, no fever, no chills, no nausea, no vomiting. Related Data Previous Rx's ?Medication ?Instructions ?Recorded CPAP (CPAP Machine/Device) #1 ea 09/28/23 psyllium husk 0.4 gram capsule 0.4 g PO BID #60 caps 12/16/23 (Metamucil) methocarbamol 750 mg tablet 750 mg PO Q8H muscle spasms 30 02/03/24 days #90 tabs blood pressure kit-extra large #1 ea 10/31/24 fluoxetine 20 mg capsule 20 mg PO DAILY 90 days #90 caps 11/19/24 atorvastatin 10 mg tablet 10 mg PO DAILY 90 days #90 tabs 04/18/25 hydrochlorothiazide 25 mg tablet 25 mg PO DAILY 90 days #90 tabs 08/20/25 ibuprofen 800 mg tablet 800 mg PO TID PRN pain #60 tabs 08/20/25 albuterol sulfate 90 mcg/actuation 2 inh inhalation Q6-8H PRN 08/24/25 aerosol inhaler shortness of breath or wheezing #6.7 grams Allergies Allergy/AdvReac Type Severity Reaction Status Date / Time bee pollen (BEE STINGS) Allergy Severe ANAPHYLAXIS Verified 09/25/25 12:35 Sulfa (Sulfonamide Allergy Severe ANAPHYLAXIS Verified 09/25/25 12:35 Antibiotics) (SULFA (SULFONAMIDE ANTIBIOTICS)) Penicillins (PENICILLINS) Allergy Intermediate RASH Verified 09/25/25 12:35 dill Allergy Intermediate asthma Uncoded 09/25/25 12:35 Milk Allergy Intermediate stomach Uncoded 09/25/25 12:35 pains Review of Systems Review of Systems: All other systems are reviewed and are negative Constitutional: Reports as per HPI and Reports no additional constitutional complaints Eyes: Reports as per HPI and Reports no additional eye complaints Reports system reviewed and no additional complaints, except as documented Cardiovascular: Reports as per HPI and Reports no additional cardiovascular complaints Respiratory: Reports as per HPI and Reports no additional respiratory complaints Gastrointestinal: Reports as per HPI and Reports no additional gastrointestinal complaints Genitourinary: Reports no additional female genitourinary complaints Musculoskeletal: Reports no additional musculoskeletal complaints Skin/Breast: Reports system reviewed and no additional complaints, except as docu Psychiatric: Reports no additional psychiatric complaints Endocrine: Reports no additional endocrine complaints Hematologic/Lymphatic: Reports no additional hematologic/lymphatic complaints Allergic/Immunologic: Reports no additional allergic/immunologic complaints Reports system reviewed and no additional complaints, except as documented and Reports Abnormal speech present PMFSH Past Medical History Medical History Screening for hypothyroidism Breast cancer screening Obese COVID-19 Physical exam BMI 50.0-59.9, adult Encounter to establish care Asthma Diverticulitis Surgical History Hx of colonoscopy Family History Family History Mother Breast cancer Substance use disorder Brother High cholesterol Father Diverticulitis Other Mental health disorder Social History Social History Household Members: Significant Other Housing: Apartment Alcohol intake: never Patient Tobacco Use Status: Former Tobacco user e-Cigarette/Vaping Use: Never Used Second Hand Smoke Exposure: No Advance Directives: No Advance Directives Information Provided: No Do you have a plan to hurt others: No Plan service: No Current occupational status: employed 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 Blood pressure elevated. Heart rate normal. Respiratory rate normal. Temperature normal. Oxygen saturation normal. Appearance: Alert. Oriented X3. No acute distress. Head: Normal external exam. Normocephalic. Atraumatic. No Payne signs noted. No raccoon eyes noted Eyes: PERRLA. EOMI. Conjunctiva and sclera normal. Eyelids normal. ENT: TM's Normal. Pharynx normal. Uvula midline. Moist mucous membranes. No trismus noted. No drooling noted. No muffled voice noted. Neck: Normal inspection. Neck supple. FROM. No adenopathy. Thyroid Normal. No meningeal signs. No neck mass noted. CVS: Normal heart rate and rhythm. Heart sound normal. No murmurs noted. Pulses normal throughout. Respiratory: No respiratory distress. Painless inspiration. Breath sounds normal. No wheezes/rales/rhonchi noted. Chest nontender. No accessory muscle usage noted or decreased air movement noted. Abdomen: Soft and nontender. Bowel sounds normal in all 4 quadrants. No distention noted. No organomegaly noted. No visible injury noted. Back: No CVA tenderness. Full range of motion noted. Skin: Skin warm and dry. Normal skin color. Normal skin turgor. No rashes/lesions/lacerations noted. Extremities: No lower extremity edema. Extremities exhibit normal range of motion. Extremities nontender. Neuro: Mental status: Normal attention, orientation, memory, and affect. Cranial nerves: Pupils are equal, round and reactive to light, EOMI, visual fischer are fall, face is symmetric, facial sensations are normal. Motor examination normal muscle tone, strength to 4 extremities. DTR are +2, planter's are flexor. Sensory exam; normal coordination, no ataxia, gait stable. Cerebellar exam: Jiqzoo-ax-unqu and qrej-nh-ppee is normal. Extrapyramidal system: No tremors, no rigidity with normal facial expressions. Pronator drift not present Course Course Course Narrative: 59-year-old female presented hospital today for right hip pain after doing stairs over the weekend. No traumatic injuries. Atraumatic in nature. History of hypertension hyperlipidemia obesity and lumbar radiculopathy. Rapid medical screening exam was performed. Patient stable at time of evaluation. Diane Davis, 09/25/25 1248 Reevaluation(s) Reevaluation #1: Feels better after IM injection of Dilaudid and Toradol, low risk for a DVT, no rhabdomyolysis, likely diagnosis is lumbar radiculopathy, will discharge on pain medication, rest, heating pad. Time: 17:05 Medications Administered Discontinued Medications Generic Name Dose Route Start Last Admin Trade Name Freq PRN Reason Stop Dose Admin Hydromorphone HCl 1 mg 09/25/25 15:31 09/25/25 16:11 Hydromorphone Hcl 1 Mg/Ml Syringe IM 09/25/25 15:32 1 mg ONCE ONE Administration Protocol Ketorolac Tromethamine 15 mg 09/25/25 15:31 09/25/25 16:12 Ketorolac Tromethamine 15 Mg/Ml Vial IM 09/25/25 15:32 15 mg ONCE ONE Administration Medical Decision Making Differential Diagnosis Differential Diagnoses: The differential diagnosis associated with the presentation includes (Right lower extremity DVT, right hip injury, lumbar radiculopathy, rhabdomyolysis, electrolyte derangement, severe anemia.) Admission/Observation Consideration of admission/observation: Escalation of care including admission/observation considered Lab Data MDM Lab Attestation statement: I reviewed the patient's lab results. 09/25/25 15:57 09/25/25 15:57 Labs: Lab Results 09/25/25 09/25/25 Range/Units 15:56 15:57 WBC 12.1 H (4.8-10.8) X10*3/uL RBC 4.41 (4.20-5.50) X10*6/uL Hgb 13.3 (12.0-16.0) g/dl Hct 41.5 (37.0-47.0) % MCV 94.1 (80.0-98.0) fL MCH 30.2 (27.0-33.0) pg MCHC 32.0 (31.0-35.0) g/dl RDW 12.9 (11.0-16.0) % Plt Count 276 (160-400) X10*3/uL MPV 9.0 L (9.4-12.3) fL Immature Gran % (Auto) 0.4 (0.0-0.4) % Neut % (Auto) 66.0 (45-73) % Lymph % (Auto) 21.8 (20-40) % Maries % (Auto) 9.4 (2-11) % Eos % (Auto) 1.8 (0-4) % Baso % (Auto) 0.6 (0-2) % Lymph # (Auto) 2.6 (1.2-4.9) X10*3/uL Maries # (Auto) 1.1 (0.1-1.2) X10*3/uL Eos # (Auto) 0.2 (0.0-0.4) X10*3/uL Baso # (Auto) 0.1 (0.0-0.2) X10*3/uL Abs Immat Gran (auto) 0.05 H (0.00-0.03) X10*3/uL Absolute Neuts (auto) 8.0 (2.0-8.3) x10*3/uL Absolute Nucleated RBC 0.000 (0.0-0.012) X10*3/uL Nucleated RBC % (auto) 0.0 (0.0-0.2) /100WBC D-Dimer High Sensitivty < 150 NG/ML Sodium 143 (135-145) mmol/L Potassium 4.0 (3.3-5.1) mmol/L Chloride 105 (96-108) mmol/L Carbon Dioxide 29 (22-29) mmol/L Anion Gap 13 (12-20) BUN 13 (9-16) mg/dL Creatinine 0.65 (0.5-1.4) mg/dL Estim Creat Clear Calc 96.9 Estimated GFR > 60 Random Glucose 81 (60-115) mg/dL Calcium 10.0 (8.4-10.2) mg/dL Total Creatine Kinase 61 (26-140) U/L Troponin I High Sens < 2.7 (<3.5-17.0) ng/L Independent Interpretation I performed an independent interpretation of an: Plain X-Ray (Right hip x-ray: No acute fracture dislocation.) Radiology Impression Discussion of test interpretation with radiology: I have reviewed the radiologist's reading. Discharge Plan Discharge Clinical Impression: Lumbar radiculopathy, right Patient Disposition: Home, Self-Care Instructions: Lumbar Radiculopathy (ED) Prescriptions: No Action (DME) CPAP Machine/Device Device See Rx Instructions .Route Qty: 1 0RF Rx Instructions: CPAP machine and supplies fluoxetine 20 mg capsule 20 mg PO DAILY 90 Days Qty: 90 2RF ibuprofen 800 mg tablet 800 mg PO TID PRN (Reason: pain) Qty: 60 2RF hydrochlorothiazide 25 mg tablet 25 mg PO DAILY 90 Days Qty: 90 0RF albuterol sulfate 90 mcg/actuation HFA aerosol inhaler 2 inh inhalation Q6-8H PRN (Reason: shortness of breath or wheezing) Qty: 6.7 2RF psyllium husk [Metamucil] 0.4 gram capsule 0.4 g PO BID Qty: 60 12RF (DME) blood pressure kit-extra large Kit See Rx Instructions .Route Qty: 1 0RF Rx Instructions: As directed methocarbamol 750 mg tablet 750 mg PO Q8H 30 Days Qty: 90 0RF atorvastatin 10 mg tablet 10 mg PO DAILY 90 Days Qty: 90 1RF Referrals: Vlad Torres PA-C [Primary Care Provider, Internal Medicine] Print Language: Ecuadorean
--- NOTE | 2025-09-25 15:16 | PC.NURSE ---
Patient taken to x-ray.
[2025-09-25 16:01] LABS: MANUAL DIFF FLAG NO
[2025-09-25 16:04] LABS: Hematocrit 41.5 % (37.0-47.0); Hemoglobin 13.3 g/dl (12.0-16.0); Imm Gran Abs Auto 0.05 X10*3/uL (0.00-0.03); Imm Gran Pct Auto 0.4 % (0.0-0.4); Lymphocytes Absolute Auto 2.6 X10*3/uL (1.2-4.9); Mean Corpuscular HGB Conc 32.0 g/dl (31.0-35.0); Mean Corpuscular Hemoglobin 30.2 pg (27.0-33.0); Mean Corpuscular Volume 94.1 fL (80.0-98.0); NRBC Abs Auto 0.000 X10*3/uL (0.0-0.012); NRBC Pct Auto 0.0 /100WBC (0.0-0.2); Platelet Count 276 X10*3/uL (160-400); Red Blood Count 4.41 X10*6/uL (4.20-5.50); White Blood Count 12.1 X10*3/uL (4.8-10.8)
[2025-09-25 16:18] LABS: D Dimer High Sensitivity < 150 NG/ML
[2025-09-25 16:20] LABS: Anion Gap 13 (12-20); Blood Urea Nitrogen 13 mg/dL (9-16); Calcium 10.0 mg/dL (8.4-10.2); Carbon Dioxide 29 mmol/L (22-29); Chloride 105 mmol/L (96-108); Creatinine Clr Calc Pharmacy 96.9; Estimated Glomerular Filt Rate > 60; Potassium 4.0 mmol/L (3.3-5.1); Sodium 143 mmol/L (135-145)
[2025-09-25 16:24] LABS: Troponin-I High Sensitivity < 2.7 ng/L (<3.5-17.0)
[2025-09-25 16:57] VITALS: BP 115/54; PULSE 78; RESP 18; TEMP 36.6; O2SAT 94
[2025-09-25 17:23] VITALS: BP 115/54; PULSE 78; RESP 18; TEMP 36.6; O2SAT 94
== END 2025-09-25 17:25 | disposition home or self-care (01) ==
PROVIDERS: Emergency Provider Emergency Medicine; PCP Physician Assistant
DX: M54.16 Radiculopathy, lumbar region (principal); M25.551 Pain in right hip; M54.50 Low back pain, unspecified
CPT/HCPCS: 36415; 73502; 80048; 82550; 84484; 85025; 85379; 96372; 99284; J1171; J1885

== ENCOUNTER → 2025-09-25 15:28 | Outpatient (BNV) | payer OTHER, SELFPAY | PROVIDERS: Emergency Provider Emergency Medicine; PCP Physician Assistant; Visit Provider Radiology Diagnostic Radiology | DX: M16.0 Bilateral primary osteoarthritis of hip (principal) | CPT/HCPCS: 73502 ==